=== PATIENT | female | born 1980 | race Caucasian/White ===

== ENCOUNTER 2016-06-17 16:36 | Inpatient (IN) | payer OTHER ==
[2016-06-17 19:49] VITALS: BMI 26.6
--- NOTE | 2016-06-17 20:14 | HP ---
COWS - Scale Resting Pulse: 0= [place] 80 or Below Sweatin=Flushed/Facial Moisture Restless Observation: 3= Extraneous Movement Pupil Size: 2= Moderately Dilated Bone or Joint Aches: 4=Acute Joint/Muscle Pain Runny Nose/ Eye Tearin= Nasal Congestion GI Upset > 30mins: 1= Stomach Cramp Tremor Observation: 2= Slight Tremor Visible Yawning Observation: 1= 1-2x During Session Anxiety or Irritability: 2=Irritable/Anxious Goose Flesh Skin: 0=Smooth Skin COWS Score: 18 CIWA Score - CIWA Score Nausea/Vomitin-No Nausea/No Vomiting Muscle Tremors: 4-Moderate,w/Arms Extend Anxiety: 4-Mod. Anxious/Guarded Agitation: 4-Moderately Restless Paroxysmal Sweats: 3 Orientation: 0-Oriented Tacttile Disturbances: 0-None Auditory Disturbances: 0-None Visual Disturbances: 2-Mild Sensitivity Headache: 3-Moderate CIWA-Ar Total Score: 20 Admission ROS BHS - HPI Chief Complaint: WITHDRAWAL SX'S SEEKING DETOX Allergies/Adverse Reactions: Allergies Allergy/AdvReac Type Severity Reaction Status Date / Time phenobarbital Allergy Severe Rash Verified 06/17/16 20:08 History of Present Illness: 36 Y.O. FEMALE WITH H/O OPIOID AND ALCOHOL DEPENDENCE ADMITTED FOR DETOX TXMENT. CLIENT REPORTS LAST DETOX TXMENT 1 MONTH AGO AT [facility]. UTOX POSITIVE FOR BENZO'S DENIES USE STATES "IT'S CUT WITH THE HEROIN". DENIES ANY SIGNIFICANT PERIOD OF CLEAN TIME. Exam Limitations: No Limitations - Ebola screening Have you traveled outside of the country in the last 21 days: No (N) Have you had contact with anyone from an Ebola affected area: No Have you been sick,other than usual withdrawal symptoms: No Do you have a fever: No - Review of Systems Constitutional: Chills, Loss of Appetite, Malaise, Night Sweats, Changes in sleep EENT: reports: Nose Congestion Respiratory: reports: No Symptoms reported Cardiac: reports: No Symptoms Reported GI: reports: Poor Appetite, Abdominal cramping : reports: No Symptoms Reported Musculoskeletal: reports: Back Pain Integumentary: reports: No Symptoms Reported Neuro: reports: Headache Endocrine: reports: No Symptoms Reported Hematology: reports: Blood Clots (H/O LLE DVT) Psychiatric: reports: Anxious, Depressed Other Systems: Reviewed and Negative Patient History - Patient Medical History Hx Anemia: Yes (USED TO TAKE PROCRIT BUT NOT RECENTLY.) Hx Asthma: No Hx Chronic Obstructive Pulmonary Disease (COPD): No Hx Cancer: No Hx Cardiac Disorders: Yes (CVA) Hx Congestive Heart Failure: No Hx Hypertension: No Hx Hypercholesterolemia: No Hx Pacemaker: No HX Cerebrovascular Accident: Yes (HX AVM AT 20) Hx Seizures: No Hx Dementia: No Hx Diabetes: No Hx Gastrointestinal Disorders: No Hx Liver Disease: No Hx Genitourinary Disorders: No Hx Sexually Transmitted Disorders: No Hx Renal Disease (ESRD): No Hx Thyroid Disease: No Hx Human Immunodeficiency Virus (HIV): No (NEGATIVE HX) Hx Hepatitis C: No Hx Depression: Yes (NO MED MGMT) Hx Suicide Attempt: No Hx Bipolar Disorder: No Hx Schizophrenia: No - Patient Surgical History Past Surgical History: Yes Hx Neurologic Surgery: Yes (BRAIN Sx for AVM at age 20 yrs old.) Hx Cataract Extraction: No Hx Cardiac Surgery: No Hx Lung Surgery: No Hx Breast Surgery: No Hx Breast Biopsy: No Hx Abdominal Surgery: No Hx Appendectomy: No Hx Cholecystectomy: No Hx Genitourinary Surgery: No Hx Section: No Hx Orthopedic Surgery: No Hx Hysterectomy: No Anesthesia Reaction: No - PPD History Previous Implant?: Yes Documented Results: Negative w/proof Implanted On Prior [facility] Admission?: Yes Date: 12/19/15 Results: 0MM PPD to be Administered?: No - Reproductive History Patient is a Female of Child Bearing Age (11 -55 yrs old): Yes Last Menstrual Period: 06/10/16 LMP comment: REGULAR CYCLES Patient : No ([facility] [place]) - Smoking Cessation Smoking history: Current every day smoker Have you smoked in the past 12 months: Yes Aproximately how many cigarettes per day: 10 Cigars Per Day: 0 Hx Chewing Tobacco Use: No Initiated information on smoking cessation: Yes 'Breaking Loose' booklet given: 06/17/16 - Substance & Tx. History Hx Alcohol Use: Yes Hx Substance Use: Yes Substance Use Type: Alcohol, Heroin Hx Substance Use Treatment: Yes ([facility]) - Substances Abused HEROIN Route: Injection Frequency: Daily Amount used: 15 BAGS Age of first use: 17 Date of Last Use: 06/17/16 (2 BAGS) WHISKEY Route: Oral Frequency: Daily Amount used: 3-4 PINTS Age of first use: 29 Date of Last Use: 06/17/16 (0.5 PINT) Family Disease History - Family Disease History Family Disease History: Heart Disease: Mother Admission Physical Exam [facility] - Vital Signs Vital Signs: Vital Signs - 24 hr 06/17/16 19:46 Temperature 98.2 F Pulse Rate 80 Respiratory 20 Rate Blood Pressure 130/87 - Physical General Appearance: Yes: Appropriately Dressed, Mild Distress, Tremorous, Anxious HEENTM: Yes: EOMI, Normocephalic, Normal Voice, TERESO, Pharynx Normal, Nasal Congestion, Other (MISSING TEETH) Respiratory: Yes: Chest Non-Tender, Lungs Clear, Normal Breath Sounds, No Respiratory Distress, No Accessory Muscle Use Neck: Yes: No masses,lesions,Nodules, Supple, Trachea in good position Breast: Yes: Breast Exam Deferred Cardiology: Yes: Regular Rhythm, Regular Rate, S1, S2 Abdominal: Yes: Normal Bowel Sounds, Non Tender, Soft Genitourinary: Yes: Within Normal Limits Back: Yes: Normal Inspection Musculoskeletal: Yes: full range of Motion, Gait Steady Extremities: Yes: Normal Range of Motion, Non-Tender, Tremors 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: 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 NML intact, Fully Oriented, Alert, Motor Strength 5/5 Integumentary: Yes: Normal Color, Warm, Moist, Track Goldberg (BUE) Lymphatic: Yes: Within Normal Limits - Diagnostic (1) Alcohol dependence with uncomplicated withdrawal Current Visit: Yes Status: Chronic (2) Hx of deep venous thrombosis Current Visit: No Status: Resolved (3) Nicotine dependence Current Visit: No Status: Chronic Qualifiers: Nicotine product type: cigarettes Substance use status: uncomplicated Qualified Code(s): F17.210 - Nicotine dependence, cigarettes, uncomplicated (4) Opioid dependence with withdrawal Current Visit: Yes Status: Chronic (5) History of scoliosis Current Visit: Yes Status: Chronic Cleared for Admission [facility] - Detox or Rehab [facility] Level of Care: Medically Managed Detox Regimen/Protocol: Methadone/Librium [facility] Breath Alcohol Content Breath Alcohol Content: 0.016 Urine Pregancy Test - Result Urine Test Results: Negative- NO Line Present Urine Drug Screen - Results Drug Screen Negative: No Urine Drug Screen Results: SHAILESH-Cocaine, BZO-Benzodiazepines
[2016-06-17] MEDS ORDERED: IBUPROFEN 400 MG TABLET (FP) PO PRN (20:24)
[2016-06-17] MEDS ORDERED: MAGNESIUM HYDROX 2400MG/30ML ORAL SUSPENSION 30 ML CUP PO PRN (20:24)
[2016-06-17] MEDS ORDERED: P-EPHED 60MG/TRIPROLIDI 2.5MG TABLET PO PRN (20:24)
[2016-06-17] MEDS ORDERED: MAGNESIUM CITRATE 300 ML BOTTLE PO PRN (20:24)
[2016-06-17] MEDS ORDERED: MAG HYDROX/AL HYDROX/SIMETH 30 ML UNIT-DOSE CUP PO PRN (20:24)
[2016-06-17] MEDS ORDERED: LOPERAMIDE HCL 2 MG CAPSULE PO PRN (20:24)
[2016-06-17] MEDS ORDERED: NICOTINE POLACRILEX 2 MG GUM BC PRN (20:24)
[2016-06-17] MEDS ORDERED: METHADONE HCL 10 MG TABLET (FOR DETOX USE ONLY) PO ONE ×2 (20:24→23:00)
[2016-06-17] MEDS ORDERED: guaiFENesin/D-METHORPHAN HB 10 ML UNIT-DOSE CUPS PO PRN (20:24)
[2016-06-17] MEDS ORDERED: MENTHOL/PHENOL 1 EACH UD MM PRN (20:24)
[2016-06-17] MEDS ORDERED: diphenhydrAMINE HCL 50 MG CAPSULE PO PRN (20:24)
[2016-06-17] MEDS ORDERED: ACETAMINOPHEN 325 MG TABLET (FP) PO PRN (20:24)
[2016-06-17] MEDS: THIAMINE HCL 100 MG TABLET (FP) PO SCH (22:04)
[2016-06-17] MEDS: CYCLOBENZAPRINE HCL 10 MG TABLET (FP) PO PRN (22:05)
[2016-06-17] MEDS: chlordiazePOXIDE HCL 25 MG CAPSULE PO SCH (22:05)
[2016-06-17 23:02] LABS: URINE APPEARANCE CLOUDY; URINE BILIRUBIN NEGATIVE (NEGATIVE); URINE BLOOD NEGATIVE (NEGATIVE); URINE COLOR YELLOW; URINE GLUCOSE (UA) NEGATIVE (NEGATIVE); URINE KETONE NEGATIVE (NEGATIVE); URINE NITRITE NEGATIVE (NEGATIVE); URINE PROTEIN NEGATIVE (NEGATIVE); URINE UROBILINOGEN NEGATIVE E.U./dl (0.2-1.0)
[2016-06-17 23:05] LABS: URINE LEUK ESTERASE TRACE (NEGATIVE)
[2016-06-17 23:09] LABS: URINE MUCUS MANY; URINE RBC 1 /hpf (0-3); URINE WBC 3 /hpf (3-5)
[2016-06-17] MEDS: NICOTINE 14 MG/24 HOURS TOPICAL PATCH TD SCH (23:22)
[2016-06-18] MEDS: chlordiazePOXIDE HCL 25 MG CAPSULE PO SCH ×4 (05:26→22:14)
[2016-06-18] MEDS: CYCLOBENZAPRINE HCL 10 MG TABLET (FP) PO PRN (08:45)
[2016-06-18] MEDS: hydrOXYzine PAMOATE 50 MG CAPSULE (FP) PO PRN ×2 (08:45→20:45)
[2016-06-18] MEDS: chlordiazePOXIDE HCL 25 MG CAPSULE PO PRN ×2 (08:47→15:31)
--- NOTE | 2016-06-18 09:49 | PN ---
S CIWA - CIWA Score Nausea/Vomitin Muscle Tremors: 3 Anxiety: 3 Agitation: 2 Paroxysmal Sweats: 1-Minimal Palms Moist Orientation: 0-Oriented Tacttile Disturbances: 1-Very Mild Itch/Numbness Auditory Disturbances: 1-Very Mild Visual Disturbances: 1-Very Mild Sensitivity Headache: 2-Mild CIWA-Ar Total Score: 17 BHS COWS - Scale Resting Pulse: 0= [place] 80 or Below Sweatin= Chills/Flushing Restless Observation: 3= Extraneous Movement Pupil Size: 1= Pupils >than Normal Bone or Joint Aches: 2= Severe Diffuse Aches Runny Nose/ Eye Tearin= Runny Nose/Eyes GI Upset > 30mins: 2= Nausea/Diarrhea Tremor Observation of Outstretched Hands: 2= Slight Tremor Visible Yawning Observation: 1= 1-2x During Session Anxiety or Irritability: 2=Irritable/Anxious Goose Flesh Skin: 0=Smooth Skin COWS Score: 16 S Progress Note (SOAP) Subjective: ALERT,IRRITABLE,ANXIOUS,TREMOR,INTERRUPTED SLEEP Objective: 06/18/16 09:46 Vital Signs Temperature 98.6 F 06/18/16 09:45 Pulse Rate 75 06/18/16 09:45 Respiratory Rate 20 06/18/16 09:45 Blood Pressure 138/78 06/18/16 09:45 O2 Sat by Pulse Oximetry (%) EKG NSR,75/MIN Laboratory Last Values Urine Color Yellow 06/17/16 22:05 Urine Appearance Cloudy 06/17/16 22:05 Urine pH 7.0 (5.0-8.0) 06/17/16 22:05 Ur Specific [place] 1.025 (1.001-1.035) 06/17/16 22:05 Urine Protein Negative (NEGATIVE) 06/17/16 22:05 Urine Glucose (UA) Negative (NEGATIVE) 06/17/16 22:05 Urine Ketones Negative (NEGATIVE) 06/17/16 22:05 Urine Blood Negative (NEGATIVE) 06/17/16 22:05 Urine Nitrite Negative (NEGATIVE) 06/17/16 22:05 Urine Bilirubin Negative (NEGATIVE) 06/17/16 22:05 Urine Urobilinogen Negative E.U./dl (0.2-1.0) 06/17/16 22:05 Ur Leukocyte Esterase Trace (NEGATIVE) H D 06/17/16 22:05 Urine RBC 1 /hpf (0-3) 06/17/16 22:05 Urine WBC 3 /hpf (3-5) 06/17/16 22:05 Ur Epithelial Cells Few /hpf (FEW) 06/17/16 22:05 Urine Mucus Many 06/17/16 22:05 LABS PENDING Assessment: 06/18/16 09:48 WITHDRAWAL SYMPTOM Plan: CONTINUE DETOX
--- NOTE | 2016-06-18 09:52 | CONSULT ---
[facility] Psychiatric Consult - Data Date of interview: 06/18/16 Admission source: [facility] Identifying data: This is 36 years old female with no psychiatric hospitalization history intoxicated with: Alcohol, Opioids and Nicotine Substance Abuse History: - Smoking Cessation. Smoking history: Current every day smoker. Have you smoked in the past 12 months: Yes. Aproximately how many cigarettes per day: 10. Cigars Per Day: 0. Hx Chewing Tobacco Use: No. Initiated information on smoking cessation: Yes. 'Breaking Loose' booklet given : 06/17/16. - Substance & Tx. History. Hx Alcohol Use: Yes. Hx Substance Use : Yes. Substance Use Type: Alcohol, Heroin. Hx Substance Use Treatment: Yes ( [facility]). - Substances Abused. HEROIN. Route: Injection. Frequency: Daily. Amount used: 15 BAGS. Age of first use: 17. Date of Last Use: 06/17/16 (2 BAGS ). WHISKEY. Route: Oral. Frequency: Daily. Amount used: 3-4 PINTS. Age of first use: 29. Date of Last Use: 06/17/16 (0.5 PINT) Medical History: Low extremities edima, Scoliosis history, DVT, History of Stroke Psychiatric History: Patient reports history of Depression , reports taking prior to admission: Seroquel 100mg po qhs. Flexeril 10mg po tisd. Patient denies history of psychiatric admissions Physical/Sexual Abuse/Trauma History: Denies Additional Comment: Seroquel 100mg po qhs. Flexeril 10mg po tisd Mental Status Exam - Mental Status Exam Alert and Oriented to: Person Cognitive Function: Fair Patient Appearance: Unkempt Mood: Sad Affect: Flat Patient Behavior: Sedated Speech Pattern: Delayed Voice Loudness: Mildly Soft/Quiet Thought Process: Circumstantial Thought Disorder: Being Controlled Hallucinations: Denies Suicidal Ideation: Denies Homicidal Ideation: Denies Insight/Judgement: Fair Sleep: Difficulty falling asleep Appetite: Fair Muscle strength/Tone: Mild Hypotonicity Gait/Station: Shuffling Additional Comments: Seroquel 100mg po qhs. Flexeril 10mg po tisd Psychiatric Findings - Problem List ([place] 1, 2,3) (1) Alcohol dependence with uncomplicated withdrawal Current Visit: Yes Status: Chronic (2) Opioid dependence with withdrawal Current Visit: Yes Status: Chronic (3) Nicotine dependence Current Visit: No Status: Chronic Qualifiers: Nicotine product type: cigarettes Substance use status: uncomplicated Qualified Code(s): F17.210 - Nicotine dependence, cigarettes, uncomplicated (4) Sedative, hypnotic or anxiolytic dependence with withdrawal, uncomplicated Current Visit: No Status: Chronic (5) Uncomplicated opioid dependence Current Visit: No Status: Chronic - Initial Treatment Plan Initial Treatment Plan: Seroquel 100mg po qhs. Flexeril 10mg po tisd
[2016-06-18] MEDS ORDERED: METHADONE HCL 10 MG TABLET (FOR DETOX USE ONLY) PO SCH (10:00)
[2016-06-18] MEDS: PRENATAL VITAMINS W/ FOLIC ACID TABLET (FP) PO SCH (10:15)
[2016-06-18] MEDS: NICOTINE 14 MG/24 HOURS TOPICAL PATCH TD SCH (10:16)
[2016-06-18 10:24] LABS: MCHC 33.7 g/dl (32.0-36.0); MEAN CELL VOLUME 83.2 fl (80-96); MEAN PLT VOLUME 11.9 fl (7.5-11.1); PLATELET COUNT 127 K/MM3 (134-434); RDW 15.4 % (11.6-15.6); WHITE BLOOD COUNT 6.6 K/mm3 (4.0-10.0)
[2016-06-18 10:28] LABS: ALBUMIN 3.2 g/dl (3.4-5.0); ALK PHOS 64 U/L (45-117); ANION GAP 6 (8-16); BILIRUBIN,TOTAL 0.2 mg/dL (0.2-1.0); CALCIUM 9.2 mg/dL (8.5-10.1); CO2 31 mmol/L (21-32); CREATININE 0.6 mg/dL (0.55-1.02); GLUCOSE,RANDOM 87 mg/dL (74-106); SGOT/AST 16 U/L (15-37); SGPT/ALT 20 U/L (12-78); TOT PROT 6.5 g/dl (6.4-8.2)
[2016-06-18 11:54] LABS: HIV 1 & 2 AB NEGATIVE; HIV 1 AGp24 NEGATIVE
--- NOTE | 2016-06-18 13:35 | EKG ---
Test Reason : Blood Pressure : / mmHG Vent. Rate : 076 BPM Atrial Rate : 076 BPM P-R Int : 154 ms QRS Dur : 076 ms QT Int : 358 ms P-R-T Axes : 073 057 051 degrees QTc Int : 402 ms NORMAL SINUS RHYTHM POSSIBLE LEFT ATRIAL ENLARGEMENT BORDERLINE ECG NO PREVIOUS ECGS AVAILABLE Confirmed by KRISSY CARREON MD ([id number]) on 06/18/2016 1:35:41 PM Referred By: Confirmed By:KRISSY CARREON MD
[2016-06-18] MEDS ORDERED: CYCLOBENZAPRINE HCL 10 MG TABLET (FP) PO SCH (14:00)
[2016-06-18] MEDS ORDERED: QUEtiapine FUMARATE 100 MG TABLET (FP) PO SCH (22:00)
[2016-06-18] MEDS: THIAMINE HCL 100 MG TABLET (FP) PO SCH (22:14)
[2016-06-19] MEDS: chlordiazePOXIDE HCL 25 MG CAPSULE PO SCH ×3 (04:51→17:18)
[2016-06-19] MEDS: METHADONE HCL 5 MG TABLET (FOR DETOX USE ONLY) PO SCH (10:28)
[2016-06-19] MEDS: hydrOXYzine PAMOATE 50 MG CAPSULE (FP) PO PRN (10:28)
[2016-06-19] MEDS: QUEtiapine FUMARATE 100 MG TABLET (FP) PO SCH ×2 (10:28→22:13)
[2016-06-19] MEDS: PRENATAL VITAMINS W/ FOLIC ACID TABLET (FP) PO SCH (10:28)
[2016-06-19] MEDS: CYCLOBENZAPRINE HCL 10 MG TABLET (FP) PO PRN ×2 (10:28→22:17)
[2016-06-19] MEDS: NICOTINE 14 MG/24 HOURS TOPICAL PATCH TD SCH (10:29)
--- NOTE | 2016-06-19 11:37 | PN ---
Psychiatric Progress Note Vital Signs: Vital Signs Period Temp Pulse Resp BP Sys/Ch Pulse Ox Last 24 Hr 97.7 F-99.0 F 70-86 16-20 104-135/60-80 Date of Session: 06/19/16 Chief Complaint:: Anxiety HPI: Patient approached MD in the [place] asking to double Seroquel dosage due to anxiety and agitation. Current Medications: Active Medications Generic Name Dose Route Start Last Admin Trade Name Freq PRN Reason Stop Dose Admin Acetaminophen 650 mg 06/17/16 20:24 Tylenol - PO Q4H PRN FEVER OR PAIN Al Hydroxide/Mg Hydroxide 30 ml 06/17/16 20:24 Mylanta Oral Suspension - PO Q6H PRN DYSPEPSIA Chlordiazepoxide HCl 10 mg 06/20/16 23:00 Librium - PO 06/21/16 17:01 [id number] SUSHILA Chlordiazepoxide HCl 25 mg 06/17/16 20:24 06/18/16 15:31 Librium - PO 06/20/16 20:24 25 mg Q4H PRN Administration WITHDRAWAL(CONT SUBST) Chlordiazepoxide HCl 25 mg 06/18/16 23:00 06/19/16 10:28 Librium - PO 06/19/16 17:01 25 mg [id number] SUSHILA Administration Chlordiazepoxide HCl 15 mg 06/19/16 23:00 Librium - PO 06/20/16 17:01 [id number] SUSHILA Cyclobenzaprine HCl 10 mg 06/17/16 20:34 06/19/16 10:28 Flexeril - PO 10 mg TID PRN Administration MUSCLE SPASMS Diphenhydramine HCl 50 mg 06/17/16 20:24 Benadryl - PO HSMR1 PRN INSOMNIA Eucalyptus/Menthol/Phenol/Sorbitol 1 each 06/17/16 20:24 Cepastat Lozenge - MM Q4H PRN SORE THROAT Guaifenesin 10 ml 06/17/16 20:24 Robitussin Dm - PO Q6H PRN COUGH Hydroxyzine Pamoate 50 mg 06/17/16 20:24 06/19/16 10:28 Vistaril - PO 50 mg Q4H PRN Administration AGITATION Ibuprofen 400 mg 06/17/16 20:24 Motrin - PO Q6H PRN SEVERE PAIN Loperamide HCl 4 mg 06/17/16 20:24 Imodium - PO Q6H PRN DIARRHEA Magnesium Citrate 300 ml 06/17/16 20:24 Citroma - PO Q48H PRN CONSTIPATION Magnesium Hydroxide 30 ml 06/17/16 20:24 Milk Of Magnesia - PO DAILY PRN CONSTIPATION Methadone HCl 10 mg 06/21/16 10:00 Dolophine - PO 06/21/16 10:01 DAILY SUSHILA Methadone HCl 15 mg 06/19/16 10:00 06/19/16 10:28 Dolophine - PO 06/20/16 10:01 15 mg DAILY SUSHILA Administration Methadone HCl 5 mg 06/22/16 06:00 Dolophine - PO 06/22/16 06:01 DAILY@0600 [facility] Nicotine 14 mg 06/17/16 20:30 06/19/16 10:29 Nicoderm Patch - TD 14 mg DAILY SUSHILA Administration Nicotine Polacrilex 2 mg 06/17/16 20:24 Nicorette Gum - BC Q2H PRN NICOTINE REPLACEMENT RX Multivit/Folic Acid/Iron 1 tab 06/18/16 10:00 06/19/16 10:28 Vitamins (Sjr) - PO 1 tab DAILY SUSHILA Administration Pseudoephedrine/Triprolidine 1 combo 06/17/16 20:24 Actifed - PO TID PRN NASAL CONGESTION Quetiapine Fumarate 100 mg 06/19/16 10:00 06/19/16 10:28 Seroquel - PO 100 mg BID SUSHILA Administration Thiamine HCl 100 mg 06/17/16 22:00 06/18/16 22:14 Vitamin B1 - PO 100 mg HS SUSHILA Administration Medication(s) Change(s): Seroquel 100mg po bid Mental Status Exam - Mental Status Exam Alert and Oriented to: Person Cognitive Function: Fair Patient Appearance: Unkempt Mood: Anxious Affect: Mood Congruent Patient Behavior: Cooperative Speech Pattern: Appropriate Voice Loudness: Normal Thought Process: Goal Oriented Thought Disorder: Being Controlled Hallucinations: Denies Suicidal Ideation: Denies Homicidal Ideation: Denies Insight/Judgement: Fair Sleep: Difficulty falling asleep Appetite: Fair Muscle strength/Tone: Normal Gait/Station: Normal Additional Comments: Seroquel 100mg po bid Psychiatric Treatment Plan - Problem List (1) Alcohol dependence with uncomplicated withdrawal Current Visit: Yes (2) Opioid dependence with withdrawal Current Visit: Yes (3) Nicotine dependence Current Visit: No Qualifiers: Nicotine product type: cigarettes Substance use status: uncomplicated Qualified Code(s): F17.210 - Nicotine dependence, cigarettes, uncomplicated (4) Sedative, hypnotic or anxiolytic dependence with withdrawal, uncomplicated Current Visit: No (5) Uncomplicated opioid dependence Current Visit: No Initial treatment plan: Seroquel 100mg po bid
[2016-06-19] MEDS ORDERED: IBUPROFEN 600 MG TABLET (FP) PO PRN (12:01)
--- NOTE | 2016-06-19 12:01 | PN ---
[facility] CIWA - CIWA Score Nausea/Vomitin-No Nausea/No Vomiting Muscle Tremors: 4-Moderate,w/Arms Extend Anxiety: 4-Mod. Anxious/Guarded Agitation: 4-Moderately Restless Paroxysmal Sweats: 3 Orientation: 0-Oriented Tacttile Disturbances: 0-None Auditory Disturbances: 0-None Visual Disturbances: 0-None Headache: 1-Very Mild CIWA-Ar Total Score: 16 BHS COWS - Scale Resting Pulse: 1= [place] 81-100 Sweatin=Flushed/Facial Moisture Restless Observation: 1= Difficult to Sit Still Pupil Size: 0= Normal to Room Light Bone or Joint Aches: 2= Severe Diffuse Aches Runny Nose/ Eye Tearin= Runny Nose/Eyes GI Upset > 30mins: 1= Stomach Cramp Tremor Observation of Outstretched Hands: 2= Slight Tremor Visible Yawning Observation: 2= >3x During Session Anxiety or Irritability: 2=Irritable/Anxious Goose Flesh Skin: 0=Smooth Skin COWS Score: 15 S Progress Note (SOAP) Subjective: nausea sweats shakes interrupted sleep agitation anxiety body aches Objective: 06/19/16 12:02 Vital Signs Temperature 97.9 F 06/19/16 09:55 Pulse Rate 86 06/19/16 09:55 Respiratory Rate 18 06/19/16 09:55 Blood Pressure 104/68 06/19/16 09:55 O2 Sat by Pulse Oximetry (%) Laboratory Tests 06/17/16 06/18/16 06/18/16 22:05 07:00 07:00 WBC 6.6 RBC 4.49 Hgb 12.6 Hct 37.3 MCV 83.2 MCHC 33.7 RDW 15.4 Plt Count 127 L D MPV 11.9 H Sodium 141 Potassium 4.2 Chloride 104 Carbon Dioxide 31 Anion Gap 6 L BUN 13 D Creatinine 0.6 Creat Clearance w eGFR > 60 Random Glucose 87 D Calcium 9.2 Total Bilirubin 0.2 D AST 16 ALT 20 Alkaline Phosphatase 64 Total Protein 6.5 Albumin 3.2 L Urine Color Yellow Urine Appearance Cloudy Urine pH 7.0 Ur Specific [place] 1.025 Urine Protein Negative Urine Glucose (UA) Negative Urine Ketones Negative Urine Blood Negative Urine Nitrite Negative Urine Bilirubin Negative Urine Urobilinogen Negative Ur Leukocyte Esterase Trace H D Urine RBC 1 Urine WBC 3 Ur Epithelial Cells Few Urine Mucus Many RPR Titer HIV 1&2 Antibody Screen HIV P24 Antigen 06/18/16 06/18/16 07:00 07:00 WBC RBC Hgb Hct MCV MCHC RDW Plt Count MPV Sodium Potassium Chloride Carbon Dioxide Anion Gap BUN Creatinine Creat Clearance w eGFR Random Glucose Calcium Total Bilirubin AST ALT Alkaline Phosphatase Total Protein Albumin Urine Color Urine Appearance Urine pH Ur Specific [place] Urine Protein Urine Glucose (UA) Urine Ketones Urine Blood Urine Nitrite Urine Bilirubin Urine Urobilinogen Ur Leukocyte Esterase Urine RBC Urine WBC Ur Epithelial Cells Urine Mucus RPR Titer Nonreactive HIV 1&2 Antibody Screen Negative HIV P24 Antigen Negative awake/alert ambulating no acute distress Assessment: 06/19/16 12:03 withdrawal sx Plan: continue detox increase fluids ensure plus 120ml po nid tigan po prn
[2016-06-19] MEDS ORDERED: TRIMETHOBENZAMIDE HCL 300 MG CAPSULE PO PRN (12:03)
[2016-06-19] MEDS: chlordiazePOXIDE HCL 25 MG CAPSULE PO PRN (14:06)
[2016-06-19] MEDS: chlordiazePOXIDE 5 MG CAPSULE PO SCH (22:13)
[2016-06-19] MEDS: THIAMINE HCL 100 MG TABLET (FP) PO SCH (22:14)
[2016-06-20] MEDS: chlordiazePOXIDE 5 MG CAPSULE PO SCH ×3 (06:07→17:38)
[2016-06-20] MEDS: CYCLOBENZAPRINE HCL 10 MG TABLET (FP) PO PRN ×2 (10:08→22:15)
[2016-06-20] MEDS: PRENATAL VITAMINS W/ FOLIC ACID TABLET (FP) PO SCH (10:08)
[2016-06-20] MEDS: QUEtiapine FUMARATE 100 MG TABLET (FP) PO SCH ×2 (10:08→22:11)
[2016-06-20] MEDS: METHADONE HCL 5 MG TABLET (FOR DETOX USE ONLY) PO SCH (10:09)
[2016-06-20] MEDS: NICOTINE 14 MG/24 HOURS TOPICAL PATCH TD SCH (10:09)
--- NOTE | 2016-06-20 10:57 | PN ---
[facility] CIWA - CIWA Score Nausea/Vomitin Muscle Tremors: 3 Anxiety: 3 Agitation: 2 Paroxysmal Sweats: 1-Minimal Palms Moist Orientation: 0-Oriented Tacttile Disturbances: 1-Very Mild Itch/Numbness Auditory Disturbances: 1-Very Mild Visual Disturbances: 1-Very Mild Sensitivity Headache: 2-Mild CIWA-Ar Total Score: 17 BHS COWS - Scale Resting Pulse: 1= [place] 81-100 Sweatin= Chills/Flushing Restless Observation: 3= Extraneous Movement Pupil Size: 1= Pupils >than Normal Bone or Joint Aches: 2= Severe Diffuse Aches Runny Nose/ Eye Tearin= Runny Nose/Eyes GI Upset > 30mins: 2= Nausea/Diarrhea Tremor Observation of Outstretched Hands: 2= Slight Tremor Visible Yawning Observation: 1= 1-2x During Session Anxiety or Irritability: 2=Irritable/Anxious Goose Flesh Skin: 0=Smooth Skin COWS Score: 17 [facility] Progress Note (SOAP) Subjective: ALERT,IRRITABLE,ANXIOUS,INTERRUPTED SLEEP,TREMOR,PAIN IN THE BODY AND BACK Objective: 06/20/16 10:54 Vital Signs Temperature 97.5 F L 06/20/16 10:20 Pulse Rate 93 H 06/20/16 10:20 Respiratory Rate 18 06/20/16 10:20 Blood Pressure 120/74 06/20/16 10:20 O2 Sat by Pulse Oximetry (%) Laboratory Last Values WBC 6.6 K/mm3 (4.0-10.0) 06/18/16 07:00 RBC 4.49 M/mm3 (3.60-5.2) 06/18/16 07:00 Hgb 12.6 GM/dL (10.7-15.3) 06/18/16 07:00 Hct 37.3 % (32.4-45.2) 06/18/16 07:00 MCV 83.2 fl (80-96) 06/18/16 07:00 MCHC 33.7 g/dl (32.0-36.0) 06/18/16 07:00 RDW 15.4 % (11.6-15.6) 06/18/16 07:00 Plt Count 127 K/MM3 (134-434) L D 06/18/16 07:00 MPV 11.9 fl (7.5-11.1) H 06/18/16 07:00 Sodium 141 mmol/L (136-145) 06/18/16 07:00 Potassium 4.2 mmol/L (3.5-5.1) 06/18/16 07:00 Chloride 104 mmol/L (98-107) 06/18/16 07:00 Carbon Dioxide 31 mmol/L (21-32) 06/18/16 07:00 Anion Gap 6 (8-16) L 06/18/16 07:00 BUN 13 mg/dL (7-18) D 06/18/16 07:00 Creatinine 0.6 mg/dL (0.55-1.02) 06/18/16 07:00 Creat Clearance w eGFR > 60 (>60) 06/18/16 07:00 Random Glucose 87 mg/dL (74-106) D 06/18/16 07:00 Calcium 9.2 mg/dL (8.5-10.1) 06/18/16 07:00 Total Bilirubin 0.2 mg/dL (0.2-1.0) D 06/18/16 07:00 AST 16 U/L (15-37) 06/18/16 07:00 ALT 20 U/L (12-78) 06/18/16 07:00 Alkaline Phosphatase 64 U/L (45-117) 06/18/16 07:00 Total Protein 6.5 g/dl (6.4-8.2) 06/18/16 07:00 Albumin 3.2 g/dl (3.4-5.0) L 06/18/16 07:00 Urine Color Yellow 06/17/16 22:05 Urine Appearance Cloudy 06/17/16 22:05 Urine pH 7.0 (5.0-8.0) 06/17/16 22:05 Ur Specific [place] 1.025 (1.001-1.035) 06/17/16 22:05 Urine Protein Negative (NEGATIVE) 06/17/16 22:05 Urine Glucose (UA) Negative (NEGATIVE) 06/17/16 22:05 Urine Ketones Negative (NEGATIVE) 06/17/16 22:05 Urine Blood Negative (NEGATIVE) 06/17/16 22:05 Urine Nitrite Negative (NEGATIVE) 06/17/16 22:05 Urine Bilirubin Negative (NEGATIVE) 06/17/16 22:05 Urine Urobilinogen Negative E.U./dl (0.2-1.0) 06/17/16 22:05 Ur Leukocyte Esterase Trace (NEGATIVE) H D 06/17/16 22:05 Urine RBC 1 /hpf (0-3) 06/17/16 22:05 Urine WBC 3 /hpf (3-5) 06/17/16 22:05 Ur Epithelial Cells Few /hpf (FEW) 06/17/16 22:05 Urine Mucus Many 06/17/16 22:05 RPR Titer Nonreactive (NONREACTIVE) 06/18/16 07:00 HIV 1&2 Antibody Screen Negative 06/18/16 07:00 HIV P24 Antigen Negative 06/18/16 07:00 Assessment: 06/20/16 10:55 WITHDRAWAL SYMPTOM Plan: CONTINUE DETOX,TINACTIN CREAM FOR TINEA PEDIS
[2016-06-20] MEDS: TOLNAFTATE 1% CREAM 15 GM TUBE TP SCH ×2 (12:39→22:11)
[2016-06-20] MEDS: hydrOXYzine PAMOATE 50 MG CAPSULE (FP) PO PRN (18:31)
[2016-06-20] MEDS: THIAMINE HCL 100 MG TABLET (FP) PO SCH (22:11)
[2016-06-20] MEDS: chlordiazePOXIDE HCL 10 MG CAPSULE PO SCH (22:11)
[2016-06-21] MEDS: chlordiazePOXIDE HCL 10 MG CAPSULE PO SCH ×3 (06:07→17:42)
[2016-06-21] MEDS: hydrOXYzine PAMOATE 50 MG CAPSULE (FP) PO PRN ×2 (08:38→18:14)
--- NOTE | 2016-06-21 09:36 | PN ---
S Progress Note (SOAP) Subjective: ALERT,INTERRUPTED SLEEP Objective: 06/21/16 09:35 Vital Signs Temperature 97.3 F L 06/21/16 09:35 Pulse Rate 88 06/21/16 09:35 Respiratory Rate 18 06/21/16 09:35 Blood Pressure 106/57 06/21/16 09:35 O2 Sat by Pulse Oximetry (%) Assessment: 06/21/16 09:35 WITHDRAWAL SYMPTOM Plan: CONTINUE DETOX,DISCHARGE IN AM
[2016-06-21] MEDS ORDERED: METHADONE HCL 10 MG TABLET (FOR DETOX USE ONLY) PO SCH (10:00)
[2016-06-21] MEDS: PRENATAL VITAMINS W/ FOLIC ACID TABLET (FP) PO SCH (10:10)
[2016-06-21] MEDS: NICOTINE 14 MG/24 HOURS TOPICAL PATCH TD SCH (10:11)
[2016-06-21] MEDS: TOLNAFTATE 1% CREAM 15 GM TUBE TP SCH ×2 (10:11→22:17)
[2016-06-21] MEDS: QUEtiapine FUMARATE 100 MG TABLET (FP) PO SCH ×2 (10:11→22:18)
[2016-06-21] MEDS: THIAMINE HCL 100 MG TABLET (FP) PO SCH (22:18)
[2016-06-21] MEDS: CYCLOBENZAPRINE HCL 10 MG TABLET (FP) PO PRN (22:19)
[2016-06-22] MEDS ORDERED: METHADONE HCL 5 MG TABLET (FOR DETOX USE ONLY) PO SCH (06:00)
[2016-06-22] MEDS: PRENATAL VITAMINS W/ FOLIC ACID TABLET (FP) PO SCH (09:16)
[2016-06-22] MEDS: QUEtiapine FUMARATE 100 MG TABLET (FP) PO SCH (09:16)
[2016-06-22] MEDS: TOLNAFTATE 1% CREAM 15 GM TUBE TP SCH (09:17)
[2016-06-22] MEDS: NICOTINE 14 MG/24 HOURS TOPICAL PATCH TD SCH (09:17)
--- NOTE | 2016-06-22 09:30 | DS ---
[facility] Detox Discharge Summary Admission Date: 06/17/16 Discharge Date: 06/22/16 - History Present History: Alcohol Dependence, Opioid Dependence Pertinent Past History: AVM DVT Scoliosis - Physical Exam Results Vital Signs: Vital Signs Temperature 97.3 F L 06/22/16 06:00 Pulse Rate 75 06/22/16 06:00 Respiratory Rate 18 06/22/16 06:00 Blood Pressure 117/71 06/22/16 06:00 O2 Sat by Pulse Oximetry (%) Pertinent Admission Physical Exam Findings: withdrawal sx. Laboratory Last Values WBC 6.6 K/mm3 (4.0-10.0) 06/18/16 07:00 RBC 4.49 M/mm3 (3.60-5.2) 06/18/16 07:00 Hgb 12.6 GM/dL (10.7-15.3) 06/18/16 07:00 Hct 37.3 % (32.4-45.2) 06/18/16 07:00 MCV 83.2 fl (80-96) 06/18/16 07:00 MCHC 33.7 g/dl (32.0-36.0) 06/18/16 07:00 RDW 15.4 % (11.6-15.6) 06/18/16 07:00 Plt Count 127 K/MM3 (134-434) L D 06/18/16 07:00 MPV 11.9 fl (7.5-11.1) H 06/18/16 07:00 Sodium 141 mmol/L (136-145) 06/18/16 07:00 Potassium 4.2 mmol/L (3.5-5.1) 06/18/16 07:00 Chloride 104 mmol/L (98-107) 06/18/16 07:00 Carbon Dioxide 31 mmol/L (21-32) 06/18/16 07:00 Anion Gap 6 (8-16) L 06/18/16 07:00 BUN 13 mg/dL (7-18) D 06/18/16 07:00 Creatinine 0.6 mg/dL (0.55-1.02) 06/18/16 07:00 Creat Clearance w eGFR > 60 (>60) 06/18/16 07:00 Random Glucose 87 mg/dL (74-106) D 06/18/16 07:00 Calcium 9.2 mg/dL (8.5-10.1) 06/18/16 07:00 Total Bilirubin 0.2 mg/dL (0.2-1.0) D 06/18/16 07:00 AST 16 U/L (15-37) 06/18/16 07:00 ALT 20 U/L (12-78) 06/18/16 07:00 Alkaline Phosphatase 64 U/L (45-117) 06/18/16 07:00 Total Protein 6.5 g/dl (6.4-8.2) 06/18/16 07:00 Albumin 3.2 g/dl (3.4-5.0) L 06/18/16 07:00 Urine Color Yellow 06/17/16 22:05 Urine Appearance Cloudy 06/17/16 22:05 Urine pH 7.0 (5.0-8.0) 06/17/16 22:05 Ur Specific [place] 1.025 (1.001-1.035) 06/17/16 22:05 Urine Protein Negative (NEGATIVE) 06/17/16 22:05 Urine Glucose (UA) Negative (NEGATIVE) 06/17/16 22:05 Urine Ketones Negative (NEGATIVE) 06/17/16 22:05 Urine Blood Negative (NEGATIVE) 06/17/16 22:05 Urine Nitrite Negative (NEGATIVE) 06/17/16 22:05 Urine Bilirubin Negative (NEGATIVE) 06/17/16 22:05 Urine Urobilinogen Negative E.U./dl (0.2-1.0) 06/17/16 22:05 Ur Leukocyte Esterase Trace (NEGATIVE) H D 06/17/16 22:05 Urine RBC 1 /hpf (0-3) 06/17/16 22:05 Urine WBC 3 /hpf (3-5) 06/17/16 22:05 Ur Epithelial Cells Few /hpf (FEW) 06/17/16 22:05 Urine Mucus Many 06/17/16 22:05 RPR Titer Nonreactive (NONREACTIVE) 06/18/16 07:00 HIV 1&2 Antibody Screen Negative 06/18/16 07:00 HIV P24 Antigen Negative 06/18/16 07:00 labs noted - Treatment Hospital Course: Detox Protocol Followed, Detoxed Safely, Responded well, Discharged Condition Good, Rehab Referral Accepted - Medication Discharge Medications: Ambulatory Orders Cyclobenzaprine HCl [Flexeril -] 10 mg PO TID 04/18/16 Quetiapine Fumarate [Seroquel -] 25 mg PO BID #60 tablet 04/21/16 Quetiapine Fumarate [Seroquel] 100 tab PO HS #30 tablet 04/21/16 Cyclobenzaprine HCl [Flexeril -] 10 mg PO TID #90 tablet 06/18/16 Quetiapine Fumarate [Seroquel] 100 mg PO HS #30 tablet 06/18/16 - Diagnosis (1) Alcohol dependence with uncomplicated withdrawal Current Visit: Yes Status: Chronic (2) Opioid dependence with withdrawal Current Visit: Yes Status: Chronic (3) Sedative, hypnotic or anxiolytic dependence with withdrawal, uncomplicated Current Visit: Yes Status: Chronic - AMA Did Patient Leave Against Medical Advice: No
[2016-06-22 10:32] VITALS: BP 116/67; PULSE 88; TEMP 98.2
== END 2016-06-22 09:40 | disposition home or self-care (01) | DRG 773 ==
LOC: YASAS 16:36 → Y6N 20:29
PROVIDERS: ADMIT Internal Medicine Addiction Medicine; ATTEND Internal Medicine Addiction Medicine
PROC: HZ2ZZZZ Detoxification Services for Substance Abuse Treatment (ICD-10-PCS; principal; 2016-06-22)
DX: F11.23 Opioid dependence with withdrawal (principal); F13.230 Sedative, hypnotic or anxiolytic dependence with withdrawal, uncomplicated; F10.230 Alcohol dependence with withdrawal, uncomplicated; F17.210 Nicotine dependence, cigarettes, uncomplicated; M41.9 Scoliosis, unspecified
CPT/HCPCS: 36415; 80053; 81003; 81015; 85027; 86593; 87389; 93005; 93010

== ENCOUNTER 2016-08-01 12:57 | Inpatient (IN) | payer OTHER ==
[2016-08-01 15:36] VITALS: BMI 26.4
--- NOTE | 2016-08-01 19:10 | HP ---
COWS - Scale Resting Pulse: 2= [place] 101-120 Sweatin= Chills/Flushing Restless Observation: 3= Extraneous Movement Pupil Size: 0= Normal to Room Light Bone or Joint Aches: 1= Mild Discomfort Runny Nose/ Eye Tearin= Runny Nose/Eyes GI Upset > 30mins: 2= Nausea/Diarrhea Tremor Observation: 1= Tremor [place], Not Seen Yawning Observation: 1= 1-2x During Session Anxiety or Irritability: 2=Irritable/Anxious Goose Flesh Skin: 0=Smooth Skin COWS Score: 15 CIWA Score - CIWA Score Nausea/Vomitin-Mild Nausea/No Vomiting Muscle Tremors: 4-Moderate,w/Arms Extend Anxiety: 4-Mod. Anxious/Guarded Agitation: 4-Moderately Restless Paroxysmal Sweats: 1-Minimal Palms Moist Orientation: 0-Oriented Tacttile Disturbances: 0-None Auditory Disturbances: 0-None Visual Disturbances: 0-None Headache: 2-Mild CIWA-Ar Total Score: 16 Admission ROS BHS - HPI Chief Complaint: WITHDRAWAL SX Allergies/Adverse Reactions: Allergies Allergy/AdvReac Type Severity Reaction Status Date / Time phenobarbital Allergy Severe Rash Verified 08/01/16 18:30 History of Present Illness: 36 YEARS OLD FEMALE WITH LONG HISTORY OF ALCOHOL XANAX NICOTINE OPIATE DEPENDENCE DENIES MEDICAL ISSUE HAS DEPRESSION IS ADMITTED TO DETOX Exam Limitations: No Limitations - Ebola screening Have you traveled outside of the country in the last 21 days: No Have you had contact with anyone from an Ebola affected area: No Have you been sick,other than usual withdrawal symptoms: No Do you have a fever: No - Review of Systems Constitutional: Chills, Loss of Appetite, Changes in sleep, Unintentional Wgt. Loss, Unexplained wgt Loss EENT: reports: No Symptoms Reported Respiratory: reports: No Symptoms reported Cardiac: reports: No Symptoms Reported GI: reports: Diarrhea, Nausea, Poor Appetite, Poor Fluid Intake, Abdominal cramping : reports: No Symptoms Reported Musculoskeletal: reports: Back Pain, Joint Pain, Muscle Pain, Neck Pain Integumentary: reports: Change in Color (BOTH FORE ARMS) Neuro: reports: Tremors Endocrine: reports: No Symptoms Reported Hematology: reports: No Symptoms Reported Psychiatric: reports: Judgement Intact, Orientated x3, Depressed Other Systems: Reviewed and Negative Patient History - Patient Medical History Hx Anemia: Yes (NO TREATMENT) Hx Asthma: No Hx Chronic Obstructive Pulmonary Disease (COPD): No Hx Cancer: No Hx Cardiac Disorders: No (CVA) Hx Congestive Heart Failure: No Hx Hypertension: No Hx Hypercholesterolemia: No Hx Pacemaker: No HX Cerebrovascular Accident: Yes (2000) Hx Seizures: No Hx Dementia: No Hx Diabetes: No Hx Gastrointestinal Disorders: No Hx Liver Disease: No Hx Genitourinary Disorders: No Hx Sexually Transmitted Disorders: No Hx Renal Disease (ESRD): No Hx Thyroid Disease: No Hx Human Immunodeficiency Virus (HIV): No (NEGATIVE HX) Hx Hepatitis C: No Hx Depression: Yes (NO MED MGMT) Hx Suicide Attempt: No Hx Bipolar Disorder: No Hx Schizophrenia: No - Patient Surgical History Past Surgical History: Yes Hx Neurologic Surgery: Yes (BRAIN Sx for AVM at age 20 yrs old.) Hx Cataract Extraction: No Hx Cardiac Surgery: No Hx Lung Surgery: No Hx Breast Surgery: No Hx Breast Biopsy: No Hx Abdominal Surgery: No Hx Appendectomy: No Hx Cholecystectomy: No Hx Genitourinary Surgery: No Hx Section: No Hx Orthopedic Surgery: No Hx Hysterectomy: No Anesthesia Reaction: No - PPD History Previous Implant?: Yes Documented Results: Negative w/proof Implanted On Prior R Admission?: Yes Date: 12/19/15 Results: 0MM PPD to be Administered?: No - Reproductive History Patient is a Female of Child Bearing Age (11 -55 yrs old): Yes Last Menstrual Period: 07/11/16 Patient : No - Smoking Cessation Smoking history: Current every day smoker Have you smoked in the past 12 months: Yes Aproximately how many cigarettes per day: 10 Cigars Per Day: 0 Hx Chewing Tobacco Use: No Initiated information on smoking cessation: Yes 'Breaking Loose' booklet given: 08/01/16 - Substance & Tx. History Hx Alcohol Use: Yes Hx Substance Use: Yes Substance Use Type: Alcohol, Opiates, Tranquilizers Hx Substance Use Treatment: Yes - Substances Abused Alcohol Route: Oral Frequency: Daily Amount used: liquor- 3 pints VOLKA+ beer- 1 six pack Age of first use: 29 Date of Last Use: 08/01/16 Alprazolam (Xanax) Route: Oral Frequency: Daily Amount used: 2mg Age of first use: 29 Date of Last Use: 07/31/16 Heroin Route: Injection Frequency: Daily Amount used: 20 bags Age of first use: 17 Date of Last Use: 08/01/16 Family Disease History - Family Disease History Family Disease History: Heart Disease: Mother, Other: Father () Other Family History: ONLY CHILD Admission Physical Exam [facility] - Vital Signs Vital Signs: Vital Signs - 24 hr 08/01/16 15:28 Temperature 97.9 F Pulse Rate 105 H Respiratory 18 Rate Blood Pressure 128/76 - Physical General Appearance: Yes: Appropriately Dressed, Mild Distress, Thin, Tremorous, Irritable, Sweating, Anxious HEENTM: Yes: Hearing grossly Normal, Normal ENT Inspection, Normocephalic, Normal Voice Respiratory: Yes: Chest Non-Tender, Lungs Clear, Normal Breath Sounds, No Respiratory Distress, No Accessory Muscle Use Neck: Yes: Supple, Trachea in good position Breast: Yes: Breasts Symetrical Cardiology: Yes: Regular Rhythm, S1, S2, Tachycardia Abdominal: Yes: Non Tender, Soft, Increased Bowel Sounds Genitourinary: Yes: Within Normal Limits Back: Yes: Normal Inspection Musculoskeletal: Yes: full range of Motion, Gait Steady, Back pain, Muscle Pain (HANDS) Extremities: Yes: Normal Range of Motion, Non-Tender, Tremors 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: Alert, Motor Strength 5/5, Normal Response, Depressed Affect Integumentary: Yes: Warm, Track [place] Lymphatic: Yes: Within Normal Limits - Diagnostic (1) Alcohol dependence with uncomplicated withdrawal Current Visit: Yes Status: Acute (2) Dry skin dermatitis Current Visit: Yes Status: Acute (3) Nicotine dependence Current Visit: Yes Status: Acute Qualifiers: Nicotine product type: cigarettes Substance use status: in withdrawal Qualified Code(s): F17.213 - Nicotine dependence, cigarettes, with withdrawal (4) Opioid dependence with withdrawal Current Visit: Yes Status: Acute (5) Sedative, hypnotic or anxiolytic dependence with withdrawal, uncomplicated Current Visit: Yes Status: Acute (6) Depressive disorder Current Visit: Yes Status: Suspected (7) Weight loss Current Visit: Yes Status: Acute (8) Chronic back pain Current Visit: Yes Status: Chronic Qualifiers: Back pain location: low back pain Back pain laterality: bilateral Sciatica presence: without sciatica Qualified Code(s): M54.5 - Low back pain; G89.29 - Other chronic pain Cleared for Admission [facility] - Detox or Rehab [facility] Level of Care: Medically Managed Detox Regimen/Protocol: Methadone/Librium [facility] Breath Alcohol Content Breath Alcohol Content: 0 Urine Pregancy Test - Result Urine Test Results: Negative- NO Line Present Urine Drug Screen - Results Drug Screen Negative: No Urine Drug Screen Results: OPI-Opiates, BZO-Benzodiazepines, MTD-Methadone
[2016-08-01] MEDS ORDERED: MENTHOL/PHENOL 1 EACH UD MM PRN (19:13)
[2016-08-01] MEDS ORDERED: MAGNESIUM CITRATE 300 ML BOTTLE PO PRN (19:13)
[2016-08-01] MEDS ORDERED: P-EPHED 60MG/TRIPROLIDI 2.5MG TABLET PO PRN (19:13)
[2016-08-01] MEDS ORDERED: MAG HYDROX/AL HYDROX/SIMETH 30 ML UNIT-DOSE CUP PO PRN (19:13)
[2016-08-01] MEDS ORDERED: guaiFENesin/D-METHORPHAN HB 10 ML UNIT-DOSE CUPS PO PRN (19:13)
[2016-08-01] MEDS ORDERED: METHADONE HCL 10 MG TABLET (FOR DETOX USE ONLY) PO ONE ×2 (19:13→23:00)
[2016-08-01] MEDS ORDERED: NICOTINE POLACRILEX 2 MG GUM BC PRN (19:13)
[2016-08-01] MEDS ORDERED: MAGNESIUM HYDROX 2400MG/30ML ORAL SUSPENSION 30 ML CUP PO PRN (19:13)
[2016-08-01] MEDS ORDERED: ACETAMINOPHEN 325 MG TABLET (FP) PO PRN (19:13)
[2016-08-01] MEDS ORDERED: LOPERAMIDE HCL 2 MG CAPSULE PO PRN (19:13)
[2016-08-01] MEDS ORDERED: IBUPROFEN 400 MG TABLET (FP) PO PRN (19:13)
[2016-08-01] MEDS ORDERED: COLLOIDAL OATMEAL 1 BAR EACH TP PRN (19:15)
[2016-08-01] MEDS: chlordiazePOXIDE HCL 25 MG CAPSULE PO PRN (20:36)
[2016-08-01] MEDS: chlordiazePOXIDE HCL 25 MG CAPSULE PO SCH (22:26)
[2016-08-01] MEDS: diphenhydrAMINE HCL 50 MG CAPSULE PO PRN (22:27)
[2016-08-01] MEDS: THIAMINE HCL 100 MG TABLET (FP) PO SCH (22:27)
[2016-08-01] MEDS: CYCLOBENZAPRINE HCL 10 MG TABLET (FP) PO PRN (22:31)
[2016-08-01] MEDS: MINERAL OIL/PETROLAT/WATER TOPICAL CREAM 113 GM JAR TP SCH (22:31)
[2016-08-01 22:47] LABS: URINE APPEARANCE CLEAR; URINE BILIRUBIN NEGATIVE (NEGATIVE); URINE BLOOD NEGATIVE (NEGATIVE); URINE COLOR DKYELLOW; URINE GLUCOSE (UA) NEGATIVE (NEGATIVE); URINE KETONE NEGATIVE (NEGATIVE); URINE NITRITE NEGATIVE (NEGATIVE); URINE PROTEIN NEGATIVE (NEGATIVE); URINE UROBILINOGEN 2.0 E.U/dl E.U./dl (0.2-1.0)
[2016-08-01 22:50] LABS: URINE LEUK ESTERASE 3+ (NEGATIVE)
[2016-08-01 22:56] LABS: CALCIUM OXALATE CRYSTALS RARE /hpf (NONE SEEN); URINE MUCUS RARE; URINE RBC 4 /hpf (0-3); URINE WBC 6 /hpf (3-5)
[2016-08-02] MEDS: chlordiazePOXIDE HCL 25 MG CAPSULE PO SCH ×4 (05:43→22:08)
[2016-08-02] MEDS: CYCLOBENZAPRINE HCL 10 MG TABLET (FP) PO PRN ×2 (05:45→15:34)
[2016-08-02] MEDS: chlordiazePOXIDE HCL 25 MG CAPSULE PO PRN ×2 (07:50→12:56)
[2016-08-02] MEDS ORDERED: METHADONE HCL 10 MG TABLET (FOR DETOX USE ONLY) PO SCH (10:00)
--- NOTE | 2016-08-02 10:00 | PN ---
[facility] CIWA - CIWA Score Nausea/Vomitin Muscle Tremors: 3 Anxiety: 3 Agitation: 2 Paroxysmal Sweats: 1-Minimal Palms Moist Orientation: 0-Oriented Tacttile Disturbances: 1-Very Mild Itch/Numbness Auditory Disturbances: 1-Very Mild Visual Disturbances: 1-Very Mild Sensitivity Headache: 2-Mild CIWA-Ar Total Score: 17 BHS COWS - Scale Resting Pulse: 2= [place] 101-120 Sweatin= No chills or Flushing Restless Observation: 3= Extraneous Movement Pupil Size: 1= Pupils >than Normal Bone or Joint Aches: 2= Severe Diffuse Aches Runny Nose/ Eye Tearin= Runny Nose/Eyes GI Upset > 30mins: 3= Vomiting/Diarrhea Tremor Observation of Outstretched Hands: 2= Slight Tremor Visible Yawning Observation: 1= 1-2x During Session Anxiety or Irritability: 2=Irritable/Anxious Goose Flesh Skin: 0=Smooth Skin COWS Score: 18 [facility] Progress Note (SOAP) Subjective: ALERT,IRRITABLE,ANXIOUS,INTERRUPTED SLEEP,TREMOR,PAIN IN THE BODY AND BACK Objective: 08/02/16 09:58 Vital Signs Temperature 98.4 F 08/02/16 09:48 Pulse Rate 102 H 08/02/16 09:48 Respiratory Rate 16 08/02/16 09:48 Blood Pressure 123/59 08/02/16 09:48 O2 Sat by Pulse Oximetry (%) EKG NSR,NORMAL ECG Laboratory Last Values Urine Color Dkyellow 08/01/16 21:11 Urine Appearance Clear 08/01/16 21:11 Urine pH 5.0 (5.0-8.0) D 08/01/16 21:11 Ur Specific [place] 1.030 (1.001-1.035) 08/01/16 21:11 Urine Protein Negative (NEGATIVE) 08/01/16 21:11 Urine Glucose (UA) Negative (NEGATIVE) 08/01/16 21:11 Urine Ketones Negative (NEGATIVE) 08/01/16 21:11 Urine Blood Negative (NEGATIVE) 08/01/16 21:11 Urine Nitrite Negative (NEGATIVE) 08/01/16 21:11 Urine Bilirubin Negative (NEGATIVE) 08/01/16 21:11 Urine Urobilinogen 2.0 e.u/dl E.U./dl (0.2-1.0) H 08/01/16 21:11 Ur Leukocyte Esterase 3+ (NEGATIVE) H D 08/01/16 21:11 Urine RBC 4 /hpf (0-3) 08/01/16 21:11 Urine WBC 6 /hpf (3-5) 08/01/16 21:11 Ur Epithelial Cells Few /hpf (FEW) 08/01/16 21:11 Calcium Oxalate Crystal Rare /hpf (NONE SEEN) 08/01/16 21:11 Urine Mucus Rare 08/01/16 21:11 LABS PENDING Assessment: 08/02/16 09:59 WITHDRAWAL SYMPTOM Plan: CONTINUE DETOX
[2016-08-02] MEDS: NICOTINE 14 MG/24 HOURS TOPICAL PATCH TD SCH (10:14)
[2016-08-02] MEDS: PRENATAL VITAMINS W/ FOLIC ACID TABLET (FP) PO SCH (10:14)
[2016-08-02 10:40] LABS: MCHC 33.9 g/dl (32.0-36.0); MEAN CELL VOLUME 82.7 fl (80-96); MEAN PLT VOLUME 12.4 fl (7.5-11.1); PLATELET COUNT 117 K/MM3 (134-434); RDW 15.9 % (11.6-15.6); WHITE BLOOD COUNT 7.4 K/mm3 (4.0-10.0)
[2016-08-02 10:47] LABS: ALBUMIN 3.3 g/dl (3.4-5.0); ANION GAP 6 (8-16); CALCIUM 8.9 mg/dL (8.5-10.1); CO2 29 mmol/L (21-32); GLUCOSE,RANDOM 84 mg/dL (74-106)
[2016-08-02 10:53] LABS: ALK PHOS 78 U/L (45-117); BILIRUBIN,TOTAL 0.5 mg/dL (0.2-1.0); CREATININE 0.6 mg/dL (0.55-1.02); SGOT/AST 23 U/L (15-37); SGPT/ALT 82 U/L (12-78); TOT PROT 6.7 g/dl (6.4-8.2)
--- NOTE | 2016-08-02 13:35 | CONSULT ---
[facility] Psychiatric Consult - Data Date of interview: 08/02/16 Admission source: [facility] Identifying data: Another admission to [facility] for this 36 y/o female seeking detox treatment for alcohol,xanax and heroin dependence.Patient is single.a mother of two,domiciled,unemployed and supported on SSI benefits. Substance Abuse History: - Smoking Cessation. Smoking history: Current every day smoker. Have you smoked in the past 12 months: Yes. Aproximately how many cigarettes per day: 10. Cigars Per Day: 0. Hx Chewing Tobacco Use: No. Initiated information on smoking cessation: Yes. 'Breaking Loose' booklet given : 08/01/16. - Substance & Tx. History. Hx Alcohol Use: Yes. Hx Substance Use : Yes. Substance Use Type: Alcohol, Opiates, Tranquilizers. Hx Substance Use Treatment: Yes. - Substances Abused. Alcohol. Route: Oral. Frequency: Daily. Amount used: liquor- 3 pints VOLKA+ beer- 1 six pack. Age of first use : 29. Date of Last Use: 08/01/16. Alprazolam (Xanax). Route: Oral. Frequency: Daily. Amount used: 2mg. Age of first use: 29. Date of Last Use: 07/31/16. Heroin. Route: Injection. Frequency: Daily. Amount used: 20 bags. Age of first use: 17. Date of Last Use: 08/01/16. Confirmed by patient. Medical History: Anemia and a history of neurosurgery for AVM (age 20).Noted report of past CVA in 2000. Psychiatric History: No history of psychiatric hospitalizations.Brief contact, eight years ago,with a private psychiatrist to address depression/anxiety.At the time,the patient was prescribed seroquel and lexapro.Ms Farfan reports that she dropped out of treatment several years ago.No OPD care providers.In this interview,the patient endorses chronic insomnia and she requests the addition of seroquel to the current regimen of medications.No history of suicide attempts. Physical/Sexual Abuse/Trauma History: Patient denies. Additional Comment: Urine Drug Screen Results: OPI-Opiates, BZO-Benzodiazepines , MTD-Methadone.Noted. Mental Status Exam - Mental Status Exam Alert and Oriented to: Time, Place, Person Cognitive Function: Good Patient Appearance: Well Groomed Mood: Anxious, Apprehensive, Hopeful Affect: Mood Congruent Patient Behavior: Appropriate, Cooperative Speech Pattern: Clear Voice Loudness: Normal Thought Process: Goal Oriented Thought Disorder: Not Present Hallucinations: Denies Suicidal Ideation: Denies Homicidal Ideation: Denies Insight/Judgement: Poor Sleep: Poorly, Difficulty falling asleep Appetite: Good Muscle strength/Tone: Normal Gait/Station: Normal Psychiatric Findings - Problem List ([place] 1, 2,3) (1) Alcohol dependence with uncomplicated withdrawal Current Visit: Yes Status: Acute (2) Opioid dependence with withdrawal Current Visit: Yes Status: Acute (3) Sedative, hypnotic or anxiolytic dependence with withdrawal, uncomplicated Current Visit: Yes Status: Acute (4) Nicotine dependence Current Visit: Yes Status: Acute Qualifiers: Nicotine product type: cigarettes Substance use status: in withdrawal Qualified Code(s): F17.213 - Nicotine dependence, cigarettes, with withdrawal (5) Drug-induced mood disorder Current Visit: Yes Status: Acute (6) Chronic back pain Current Visit: Yes Status: Chronic Qualifiers: Back pain location: low back pain Back pain laterality: bilateral Sciatica presence: without sciatica Qualified Code(s): M54.5 - Low back pain; G89.29 - Other chronic pain (7) History of scoliosis Current Visit: Yes Status: Chronic (8) Insomnia Current Visit: Yes Status: Acute - Initial Treatment Plan Initial Treatment Plan: Psychoeducation.Detoxification.Seroquel 100 mg po hs.Side effects/benefits discussed with the patient.She agrees with this plan of care.Observation.
[2016-08-02] MEDS: AMMONIUM LACTATE 12% LOTION 225 GM BOTTLE TP SCH ×2 (14:06→22:09)
--- NOTE | 2016-08-02 18:28 | EKG ---
Test Reason : Blood Pressure : / mmHG Vent. Rate : 084 BPM Atrial Rate : 084 BPM P-R Int : 170 ms QRS Dur : 074 ms QT Int : 328 ms P-R-T Axes : 063 053 051 degrees QTc Int : 387 ms NORMAL SINUS RHYTHM POSSIBLE LEFT ATRIAL ENLARGEMENT SEPTAL INFARCT , AGE UNDETERMINED ABNORMAL ECG WHEN COMPARED WITH ECG OF 17-JUN-2016 21:43, SEPTAL INFARCT IS NOW PRESENT Confirmed by KAIDEN KNUTSON, HIWOT ([id number]) on 08/02/2016 6:28:27 PM Referred By: Confirmed By:HIWOT RICHEY MD
[2016-08-02] MEDS: THIAMINE HCL 100 MG TABLET (FP) PO SCH (22:07)
[2016-08-02] MEDS: QUEtiapine FUMARATE 100 MG TABLET (FP) PO SCH (22:08)
[2016-08-02] MEDS: MINERAL OIL/PETROLAT/WATER TOPICAL CREAM 113 GM JAR TP SCH (22:53)
[2016-08-03] MEDS: CYCLOBENZAPRINE HCL 10 MG TABLET (FP) PO PRN ×3 (05:16→22:15)
[2016-08-03] MEDS: chlordiazePOXIDE HCL 25 MG CAPSULE PO SCH ×3 (05:18→16:36)
[2016-08-03] MEDS: PRENATAL VITAMINS W/ FOLIC ACID TABLET (FP) PO SCH (10:08)
[2016-08-03] MEDS: NICOTINE 14 MG/24 HOURS TOPICAL PATCH TD SCH (10:08)
[2016-08-03] MEDS: AMMONIUM LACTATE 12% LOTION 225 GM BOTTLE TP SCH ×2 (10:09→22:15)
[2016-08-03] MEDS: METHADONE HCL 5 MG TABLET (FOR DETOX USE ONLY) PO SCH (10:09)
[2016-08-03] MEDS: chlordiazePOXIDE HCL 25 MG CAPSULE PO PRN (11:52)
--- NOTE | 2016-08-03 13:39 | PN ---
S CIWA - CIWA Score Nausea/Vomitin Muscle Tremors: 3 Anxiety: 4-Mod. Anxious/Guarded Agitation: 4-Moderately Restless Paroxysmal Sweats: No Perspiration Orientation: 0-Oriented Tacttile Disturbances: 1-Very Mild Itch/Numbness Auditory Disturbances: 0-None Visual Disturbances: 0-None Headache: 2-Mild CIWA-Ar Total Score: 17 BHS COWS - Scale Resting Pulse: 1= [place] 81-100 Sweatin= Chills/Flushing Restless Observation: 3= Extraneous Movement Pupil Size: 0= Normal to Room Light Bone or Joint Aches: 2= Severe Diffuse Aches Runny Nose/ Eye Tearin= Runny Nose/Eyes GI Upset > 30mins: 2= Nausea/Diarrhea Tremor Observation of Outstretched Hands: 2= Slight Tremor Visible Yawning Observation: 0= None Anxiety or Irritability: 2=Irritable/Anxious Goose Flesh Skin: 0=Smooth Skin COWS Score: 15 S Progress Note (SOAP) Subjective: Stomach pain, nausea, tremor, sweating, headache Objective: 08/03/16 13:37 Last Vital Signs Temp Pulse Resp BP Pulse Ox 99.3 F 97 H 18 99/60 08/03/16 10:00 08/03/16 10:00 08/03/16 10:00 08/03/16 10:00 Laboratory Tests 08/01/16 08/02/16 08/02/16 21:11 08:00 08:00 WBC 7.4 RBC 4.59 Hgb 12.9 Hct 37.9 MCV 82.7 MCHC 33.9 RDW 15.9 H Plt Count 117 L MPV 12.4 H Sodium 139 Potassium 4.5 Chloride 104 Carbon Dioxide 29 Anion Gap 6 L BUN 14 Creatinine 0.6 Creat Clearance w eGFR > 60 Random Glucose 84 Calcium 8.9 Total Bilirubin 0.5 D AST 23 D ALT 82 H D Alkaline Phosphatase 78 D Total Protein 6.7 Albumin 3.3 L Urine Color Dkyellow Urine Appearance Clear Urine pH 5.0 D Ur Specific [place] 1.030 Urine Protein Negative Urine Glucose (UA) Negative Urine Ketones Negative Urine Blood Negative Urine Nitrite Negative Urine Bilirubin Negative Urine Urobilinogen 2.0 e.u/dl H Ur Leukocyte Esterase 3+ H D Urine RBC 4 Urine WBC 6 Ur Epithelial Cells Few Calcium Oxalate Crystal Rare Urine Mucus Rare RPR Titer 08/02/16 08:00 WBC RBC Hgb Hct MCV MCHC RDW Plt Count MPV Sodium Potassium Chloride Carbon Dioxide Anion Gap BUN Creatinine Creat Clearance w eGFR Random Glucose Calcium Total Bilirubin AST ALT Alkaline Phosphatase Total Protein Albumin Urine Color Urine Appearance Urine pH Ur Specific [place] Urine Protein Urine Glucose (UA) Urine Ketones Urine Blood Urine Nitrite Urine Bilirubin Urine Urobilinogen Ur Leukocyte Esterase Urine RBC Urine WBC Ur Epithelial Cells Calcium Oxalate Crystal Urine Mucus RPR Titer Nonreactive Labs noted: abnormal UA Assessment: 08/03/16 13:39 Withdrawal symptoms Noted with abnormal UA Plan: Continue detox Abnormal UA: repeat UA, encouraged to drink lots of water
[2016-08-03] MEDS: diphenhydrAMINE HCL 50 MG CAPSULE PO PRN (22:12)
[2016-08-03] MEDS: chlordiazePOXIDE 5 MG CAPSULE PO SCH (22:12)
[2016-08-03] MEDS: QUEtiapine FUMARATE 100 MG TABLET (FP) PO SCH (22:12)
[2016-08-03] MEDS: MINERAL OIL/PETROLAT/WATER TOPICAL CREAM 113 GM JAR TP SCH (22:15)
[2016-08-03] MEDS: THIAMINE HCL 100 MG TABLET (FP) PO SCH (22:30)
[2016-08-04] MEDS: chlordiazePOXIDE 5 MG CAPSULE PO SCH ×4 (05:25→17:22)
[2016-08-04] MEDS: CYCLOBENZAPRINE HCL 10 MG TABLET (FP) PO PRN ×3 (05:26→22:18)
--- NOTE | 2016-08-04 09:36 | PN ---
[facility] Progress Note (SOAP) Subjective: sweats interrupted sleep agitation anxiety nausea Objective: 08/04/16 09:35 Vital Signs Temperature 98.2 F 08/04/16 05:51 Pulse Rate 88 08/04/16 05:51 Respiratory Rate 18 08/04/16 05:51 Blood Pressure 98/60 08/04/16 05:51 O2 Sat by Pulse Oximetry (%) awake/alert ambulating no acute distress Assessment: 08/04/16 09:36 withdrawal sx Plan: continue detox increase fluids tigan po prn
[2016-08-04] MEDS: PRENATAL VITAMINS W/ FOLIC ACID TABLET (FP) PO SCH (10:25)
[2016-08-04] MEDS: METHADONE HCL 5 MG TABLET (FOR DETOX USE ONLY) PO SCH (10:25)
[2016-08-04] MEDS: NICOTINE 14 MG/24 HOURS TOPICAL PATCH TD SCH (10:27)
[2016-08-04] MEDS: AMMONIUM LACTATE 12% LOTION 225 GM BOTTLE TP SCH ×2 (10:29→22:12)
[2016-08-04] MEDS ORDERED: TRIMETHOBENZAMIDE HCL 300 MG CAPSULE PO PRN (10:32)
[2016-08-04] MEDS: hydrOXYzine PAMOATE 50 MG CAPSULE (FP) PO PRN (10:36)
[2016-08-04 13:51] LABS: URINE APPEARANCE SLCLOUDY; URINE BILIRUBIN NEGATIVE (NEGATIVE); URINE BLOOD NEGATIVE (NEGATIVE); URINE COLOR YELLOW; URINE GLUCOSE (UA) NEGATIVE (NEGATIVE); URINE KETONE NEGATIVE (NEGATIVE); URINE NITRITE NEGATIVE (NEGATIVE); URINE PROTEIN NEGATIVE (NEGATIVE); URINE UROBILINOGEN NEGATIVE E.U./dl (0.2-1.0)
[2016-08-04 13:54] LABS: URINE LEUK ESTERASE 3+ (NEGATIVE)
[2016-08-04 14:03] LABS: URINE BACTERIA RARE /hpf (NONE SEEN); URINE RBC 5 /hpf (0-3); URINE WBC 22 /hpf (3-5)
[2016-08-04] MEDS: chlordiazePOXIDE HCL 25 MG CAPSULE PO PRN (14:03)
[2016-08-04] MEDS: QUEtiapine FUMARATE 100 MG TABLET (FP) PO SCH (22:12)
[2016-08-04] MEDS: chlordiazePOXIDE HCL 10 MG CAPSULE PO SCH (22:12)
[2016-08-04] MEDS: THIAMINE HCL 100 MG TABLET (FP) PO SCH (22:12)
[2016-08-04] MEDS: MINERAL OIL/PETROLAT/WATER TOPICAL CREAM 113 GM JAR TP SCH (22:15)
[2016-08-05] MEDS: chlordiazePOXIDE HCL 10 MG CAPSULE PO SCH ×3 (05:59→17:44)
[2016-08-05] MEDS: CYCLOBENZAPRINE HCL 10 MG TABLET (FP) PO PRN ×3 (05:59→22:18)
[2016-08-05] MEDS ORDERED: chlordiazePOXIDE 5 MG CAPSULE ONE (08:56)
--- NOTE | 2016-08-05 09:32 | PN ---
S Progress Note (SOAP) Subjective: ALERT,NO COMPLAINT Objective: 08/05/16 09:29 Vital Signs Temperature 98.1 F 08/05/16 05:48 Pulse Rate 81 08/05/16 05:48 Respiratory Rate 18 08/05/16 05:48 Blood Pressure 100/69 08/05/16 05:48 O2 Sat by Pulse Oximetry (%) Abnormal Lab Results 08/04/16 10:50 Ur Leukocyte Esterase 3+ H 08/05/16 09:30 Laboratory Results - last 24 hr 08/04/16 10:50 Urine Color Yellow Urine Appearance Slcloudy Urine pH 7.0 D Ur Specific [place] 1.014 Urine Protein Negative Urine Glucose (UA) Negative Urine Ketones Negative Urine Blood Negative Urine Nitrite Negative Urine Bilirubin Negative Urine Urobilinogen Negative Ur Leukocyte Esterase 3+ H Urine RBC 5 Urine WBC 22 Ur Epithelial Cells Moderate Urine Bacteria Rare Assessment: 08/05/16 09:30 08/05/16 09:30 WITHDRAWAL SYMPTOM Plan: CONTINUE DETOX,PATIENT IS ASYMPTOMATIC,NO URINARY PROBLEM,ADVISE FLUID AND WATER , DISCHARGE IN AM,FOLLOW UP WITH PMD FOR MEDICAL PROBLEM
[2016-08-05] MEDS ORDERED: METHADONE HCL 10 MG TABLET (FOR DETOX USE ONLY) PO SCH (10:00)
[2016-08-05] MEDS: PRENATAL VITAMINS W/ FOLIC ACID TABLET (FP) PO SCH (10:36)
[2016-08-05] MEDS: NICOTINE 14 MG/24 HOURS TOPICAL PATCH TD SCH (10:37)
[2016-08-05] MEDS: AMMONIUM LACTATE 12% LOTION 225 GM BOTTLE TP SCH ×2 (10:38→22:17)
[2016-08-05] MEDS: hydrOXYzine PAMOATE 50 MG CAPSULE (FP) PO PRN (14:28)
[2016-08-05] MEDS: QUEtiapine FUMARATE 100 MG TABLET (FP) PO SCH (22:01)
[2016-08-05] MEDS: THIAMINE HCL 100 MG TABLET (FP) PO SCH (22:01)
[2016-08-06] MEDS: CYCLOBENZAPRINE HCL 10 MG TABLET (FP) PO PRN (05:43)
[2016-08-06] MEDS ORDERED: METHADONE HCL 5 MG TABLET (FOR DETOX USE ONLY) PO SCH (06:00)
--- NOTE | 2016-08-06 08:30 | DS ---
[facility] Detox Discharge Summary Admission Date: 08/01/16 Discharge Date: 08/06/16 - History Present History: Alcohol Dependence, Opioid Dependence, Sedative Dependence - Physical Exam Results Vital Signs: Vital Signs Temperature 98.1 F 08/06/16 06:36 Pulse Rate 74 08/06/16 06:36 Respiratory Rate 18 08/06/16 06:36 Blood Pressure 105/67 08/06/16 06:36 O2 Sat by Pulse Oximetry (%) - Treatment Hospital Course: Detox Protocol Followed, Detoxed Safely, Responded well, Discharged Condition Good, Rehab Referral Accepted - Medication Discharge Medications: Ambulatory Orders Cyclobenzaprine HCl [Flexeril -] 10 mg PO TID 04/18/16 Quetiapine Fumarate [Seroquel] 100 tab PO HS #30 tablet 04/21/16 Quetiapine Fumarate [Seroquel] 100 mg PO HS #30 tablet 08/02/16 - Diagnosis (1) Alcohol dependence with uncomplicated withdrawal Current Visit: Yes Status: Chronic (2) Drug-induced mood disorder Current Visit: Yes Status: Acute (3) Dry skin dermatitis Current Visit: Yes Status: Acute (4) Insomnia Current Visit: Yes Status: Acute (5) Nicotine dependence Current Visit: Yes Status: Chronic Qualifiers: Nicotine product type: cigarettes Substance use status: uncomplicated Qualified Code(s): F17.210 - Nicotine dependence, cigarettes, uncomplicated (6) Opioid dependence with withdrawal Current Visit: Yes Status: Chronic (7) Sedative, hypnotic or anxiolytic dependence with withdrawal, uncomplicated Current Visit: Yes Status: Chronic (8) Weight loss Current Visit: Yes Status: Acute (9) Chronic back pain Current Visit: Yes Status: Chronic Qualifiers: Back pain location: low back pain Back pain laterality: bilateral Sciatica presence: without sciatica Qualified Code(s): M54.5 - Low back pain; G89.29 - Other chronic pain (10) History of scoliosis Current Visit: Yes Status: Chronic (11) Depressive disorder Current Visit: Yes Status: Suspected (12) Bilateral swelling of feet Current Visit: No Status: Chronic (13) Swelling of both ankles Current Visit: No Status: Chronic (14) Swelling of both hands Current Visit: No Status: Chronic - AMA Did Patient Leave Against Medical Advice: No
[2016-08-06] MEDS: hydrOXYzine PAMOATE 50 MG CAPSULE (FP) PO PRN (09:52)
[2016-08-06 10:25] VITALS: BP 117/73; PULSE 94; TEMP 98.2
== END 2016-08-06 09:55 | disposition home or self-care (01) | DRG 773 ==
LOC: YASAS 12:57 → Y6N 18:15
PROVIDERS: ADMIT Internal Medicine; ATTEND Internal Medicine
PROC: HZ2ZZZZ Detoxification Services for Substance Abuse Treatment (ICD-10-PCS; principal; 2016-08-01)
DX: F11.23 Opioid dependence with withdrawal (principal); F13.230 Sedative, hypnotic or anxiolytic dependence with withdrawal, uncomplicated; F10.230 Alcohol dependence with withdrawal, uncomplicated; F17.210 Nicotine dependence, cigarettes, uncomplicated; F32.9 Major depressive disorder, single episode, unspecified; R00.0 Tachycardia, unspecified; L85.3 Xerosis cutis; R82.90 Unspecified abnormal findings in urine; G47.00 Insomnia, unspecified; M54.5 Low back pain; G89.29 Other chronic pain; M79.89 Other specified soft tissue disorders; M25.472 Effusion, left ankle; M25.471 Effusion, right ankle; Z87.898 Personal history of other specified conditions; Z86.73 Personal history of transient ischemic attack (TIA), and cerebral infarction without residual deficits; Z86.2 Personal history of diseases of the blood and blood-forming organs and certain disorders involving the immune mechanism; Z98.1 Arthrodesis status
CPT/HCPCS: 36415; 80053; 81003; 81015; 85027; 86593; 93005; 93010

== ENCOUNTER 2016-08-30 12:23 | Inpatient (IN) | payer OTHER ==
[2016-08-30 13:52] VITALS: BMI 28.3
--- NOTE | 2016-08-30 15:09 | HP ---
COWS - Scale Resting Pulse: 1= [place] 81-100 Sweatin=Flushed/Facial Moisture Restless Observation: 3= Extraneous Movement Pupil Size: 1= Pupils >than Normal Bone or Joint Aches: 2= Severe Diffuse Aches Runny Nose/ Eye Tearin= Runny Nose/Eyes GI Upset > 30mins: 2= Nausea/Diarrhea Tremor Observation: 2= Slight Tremor Visible Yawning Observation: 1= 1-2x During Session Anxiety or Irritability: 2=Irritable/Anxious Goose Flesh Skin: 3=Piloerection COWS Score: 21 CIWA Score - CIWA Score Nausea/Vomitin Muscle Tremors: 3 Anxiety: 3 Agitation: 2 Paroxysmal Sweats: 3 Orientation: 1-Uncertain about Date Tacttile Disturbances: 0-None Auditory Disturbances: 0-None Visual Disturbances: 1-Very Mild Sensitivity Headache: 2-Mild CIWA-Ar Total Score: 18 Admission ROS BHS - HPI Chief Complaint: Need help as I'm losing my family and kids Allergies/Adverse Reactions: Allergies Allergy/AdvReac Type Severity Reaction Status Date / Time phenobarbital Allergy Severe Rash Verified 08/01/16 18:30 History of Present Illness: 36 y/o woman with longstanding h/o opiate, benzo and alcohol dependence presents for detox. She was recently discharged from [facility] following successful completion of detox. She has been in detox numerous times, was sober from 2000 to 2009.She is also requesting rehab after detox. Exam Limitations: No Limitations - Ebola screening Have you traveled outside of the country in the last 21 days: No Have you had contact with anyone from an Ebola affected area: No Have you been sick,other than usual withdrawal symptoms: No Do you have a fever: No - Review of Systems Constitutional: Chills, Loss of Appetite, Weakness EENT: reports: Nose Congestion Respiratory: reports: No Symptoms reported Cardiac: reports: No Symptoms Reported GI: reports: Nausea, Poor Appetite, Abdominal cramping : reports: No Symptoms Reported Musculoskeletal: reports: Back Pain Integumentary: reports: No Symptoms Reported Neuro: reports: Headache, Tremors Endocrine: reports: Unexplained Weight Loss Hematology: reports: Anemia Psychiatric: reports: Anxious, Depressed Other Systems: Reviewed and Negative Patient History - Patient Medical History Hx Anemia: Yes Hx Asthma: No Hx Chronic Obstructive Pulmonary Disease (COPD): No Hx Cancer: No Hx Cardiac Disorders: No Hx Congestive Heart Failure: No Hx Hypertension: No Hx Hypercholesterolemia: No Hx Pacemaker: No HX Cerebrovascular Accident: Yes (2000) Hx Seizures: No Hx Dementia: No Hx Diabetes: No Hx Gastrointestinal Disorders: No Hx Liver Disease: No Hx Genitourinary Disorders: No Hx Sexually Transmitted Disorders: No Hx Renal Disease (ESRD): No Hx Thyroid Disease: No Hx Human Immunodeficiency Virus (HIV): No Hx Hepatitis C: No Hx Depression: Yes (on medication) Hx Suicide Attempt: No Hx Bipolar Disorder: No Hx Schizophrenia: No - Patient Surgical History Past Surgical History: Yes Hx Neurologic Surgery: Yes (s/p AVM repair) Hx Cataract Extraction: No Hx Cardiac Surgery: No Hx Lung Surgery: No Hx Breast Surgery: No Hx Breast Biopsy: No Hx Abdominal Surgery: No Hx Appendectomy: No Hx Cholecystectomy: No Hx Genitourinary Surgery: No Hx Section: No Hx Orthopedic Surgery: No Hx Hysterectomy: No Anesthesia Reaction: No - PPD History Previous Implant?: Yes Documented Results: Negative w/proof Implanted On Prior R Admission?: Yes Date: 12/19/15 Results: 0MM PPD to be Administered?: No - Reproductive History Patient is a Female of Child Bearing Age (11 -55 yrs old): Yes Last Menstrual Period: 07/11/16 LMP comment: normal flow Patient : No - Smoking Cessation Smoking history: Current every day smoker Have you smoked in the past 12 months: Yes Aproximately how many cigarettes per day: 10 Cigars Per Day: 0 Hx Chewing Tobacco Use: No Initiated information on smoking cessation: Yes 'Breaking Loose' booklet given: 08/30/16 - Substance & Tx. History Hx Alcohol Use: Yes Hx Substance Use: Yes Substance Use Type: Alcohol Hx Substance Use Treatment: Yes - Substances Abused Alcohol Route: Oral Frequency: Daily Amount used: 3 pint of vodka, 1 6 pack beer Age of first use: 29 Date of Last Use: 08/30/16 Alprazolam (Xanax) Route: Oral Frequency: Daily Amount used: 2mg Age of first use: 29 Date of Last Use: 08/30/16 Heroin Route: Injection Frequency: Daily Amount used: 20 bags Age of first use: 17 Date of Last Use: 08/30/16 Family Disease History - Family Disease History Family Disease History: Heart Disease: Mother, Other: Father () Admission Physical Exam [facility] - Vital Signs Vital Signs: Vital Signs - 24 hr 08/30/16 13:48 Temperature 97.1 F L Pulse Rate 93 H Respiratory 20 Rate Blood Pressure 127/71 - Physical General Appearance: Yes: No Apparent Distress, Disheveled HEENTM: Yes: EOMI, Hearing grossly Normal, Normocephalic, Normal Voice, Nasal Congestion Respiratory: Yes: Chest Non-Tender, Lungs Clear, Normal Breath Sounds, No Respiratory Distress, No Accessory Muscle Use Neck: Yes: No masses,lesions,Nodules, Supple, Trachea in good position Breast: Yes: Breast Exam Deferred Cardiology: Yes: Regular Rhythm, Regular Rate, S1, S2 Abdominal: Yes: Normal Bowel Sounds, Soft Genitourinary: Yes: Within Normal Limits Back: Yes: Decreased Range of Motion Musculoskeletal: Yes: Pelvis Stable, Back pain, Joint swelling Extremities: Yes: Pedal Edema (bilateral) 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: digital marketing program manager II-XII NML intact, Alert, Motor Strength 5/5, Normal Response Integumentary: Yes: Clammy, Track Goldberg (both arms) Lymphatic: Yes: Within Normal Limits - Diagnostic (1) Alcohol dependence with uncomplicated withdrawal Current Visit: No Status: Chronic (2) Chronic back pain Current Visit: No Status: Chronic Qualifiers: Back pain location: low back pain Back pain laterality: bilateral Sciatica presence: without sciatica Qualified Code(s): M54.5 - Low back pain; G89.29 - Other chronic pain (3) Nicotine dependence Current Visit: Yes Status: Acute Qualifiers: Nicotine product type: cigarettes Substance use status: uncomplicated Qualified Code(s): F17.210 - Nicotine dependence, cigarettes, uncomplicated (4) Opioid dependence with withdrawal Current Visit: Yes Status: Acute (5) Sedative, hypnotic or anxiolytic dependence with withdrawal, uncomplicated Current Visit: Yes Status: Acute Cleared for Admission [facility] - Detox or Rehab [facility] Level of Care: Medically Managed Detox Regimen/Protocol: Methadone/Librium [facility] Breath Alcohol Content Breath Alcohol Content: 0.009 Urine Pregancy Test - Result Urine Test Results: Negative- NO Line Present Urine Drug Screen - Results Drug Screen Negative: No Urine Drug Screen Results: OPI-Opiates, BZO-Benzodiazepines, MTD-Methadone
[2016-08-30] MEDS ORDERED: MENTHOL/PHENOL 1 EACH UD MM PRN (15:24)
[2016-08-30] MEDS ORDERED: NICOTINE POLACRILEX 2 MG GUM BUC PRN (15:24)
[2016-08-30] MEDS ORDERED: IBUPROFEN 400 MG TABLET (FP) PO PRN (15:24)
[2016-08-30] MEDS ORDERED: ACETAMINOPHEN 325 MG TABLET (FP) PO PRN (15:24)
[2016-08-30] MEDS ORDERED: chlordiazePOXIDE HCL 25 MG CAPSULE PO ONE (15:24)
[2016-08-30] MEDS ORDERED: MAGNESIUM CITRATE 300 ML BOTTLE PO PRN (15:24)
[2016-08-30] MEDS ORDERED: MAGNESIUM HYDROX 2400MG/30ML ORAL SUSPENSION 30 ML CUP PO PRN (15:24)
[2016-08-30] MEDS ORDERED: guaiFENesin/D-METHORPHAN HB 10 ML UNIT-DOSE CUPS PO PRN (15:24)
[2016-08-30] MEDS ORDERED: MAG HYDROX/AL HYDROX/SIMETH 30 ML UNIT-DOSE CUP PO PRN (15:24)
[2016-08-30] MEDS ORDERED: LOPERAMIDE HCL 2 MG CAPSULE PO PRN (15:24)
[2016-08-30] MEDS ORDERED: P-EPHED 60MG/TRIPROLIDI 2.5MG TABLET PO PRN (15:24)
[2016-08-30] MEDS ORDERED: METHADONE HCL 10 MG TABLET (FOR DETOX USE ONLY) PO ONE ×2 (19:00→23:00)
[2016-08-30] MEDS: chlordiazePOXIDE HCL 25 MG CAPSULE PO SCH ×2 (19:16→23:03)
[2016-08-30] MEDS: NICOTINE 14 MG/24 HOURS TOPICAL PATCH TD SCH (19:17)
[2016-08-30] MEDS: THIAMINE HCL 100 MG TABLET (FP) PO SCH (23:03)
[2016-08-30] MEDS: CYCLOBENZAPRINE HCL 10 MG TABLET (FP) PO SCH (23:03)
[2016-08-30] MEDS: diphenhydrAMINE HCL 50 MG CAPSULE PO PRN (23:06)
[2016-08-31] MEDS: chlordiazePOXIDE HCL 25 MG CAPSULE PO SCH ×4 (06:16→22:29)
[2016-08-31] MEDS: CYCLOBENZAPRINE HCL 10 MG TABLET (FP) PO SCH ×3 (06:16→22:29)
[2016-08-31] MEDS ORDERED: METHADONE HCL 10 MG TABLET (FOR DETOX USE ONLY) PO SCH (10:00)
--- NOTE | 2016-08-31 10:13 | PN ---
[facility] CIWA - CIWA Score Nausea/Vomitin-No Nausea/No Vomiting Muscle Tremors: 4-Moderate,w/Arms Extend Anxiety: 4-Mod. Anxious/Guarded Agitation: 4-Moderately Restless Paroxysmal Sweats: 3 Orientation: 0-Oriented Tacttile Disturbances: 0-None Auditory Disturbances: 0-None Visual Disturbances: 0-None Headache: 0-None Present CIWA-Ar Total Score: 15 BHS COWS - Scale Resting Pulse: 0= ME 80 or Below Sweatin=Flushed/Facial Moisture Restless Observation: 1= Difficult to Sit Still Pupil Size: 0= Normal to Room Light Bone or Joint Aches: 2= Severe Diffuse Aches Runny Nose/ Eye Tearin= Runny Nose/Eyes GI Upset > 30mins: 2= Nausea/Diarrhea Tremor Observation of Outstretched Hands: 2= Slight Tremor Visible Yawning Observation: 1= 1-2x During Session Anxiety or Irritability: 2=Irritable/Anxious Goose Flesh Skin: 0=Smooth Skin COWS Score: 14 S Progress Note (SOAP) Subjective: Sweating,anxiety,tremors,interrupted sleep,nausea,restless. Objective: 08/31/16 10:12 Vital Signs - 8 hr 08/31/16 08/31/16 04:01 06:00 Temperature 97.5 F L Pulse Rate 73 Respiratory 18 18 Rate Blood Pressure 112/61 Assessment: 08/31/16 10:12 Withdrawal sx. Plan: Continue detox
[2016-08-31] MEDS: PRENATAL VITAMINS W/ FOLIC ACID TABLET (FP) PO SCH (10:45)
[2016-08-31] MEDS: NICOTINE 14 MG/24 HOURS TOPICAL PATCH TD SCH (10:46)
--- NOTE | 2016-08-31 12:44 | EKG ---
Test Reason : Blood Pressure : / mmHG Vent. Rate : 083 BPM Atrial Rate : 083 BPM P-R Int : 154 ms QRS Dur : 078 ms QT Int : 350 ms P-R-T Axes : 070 041 045 degrees QTc Int : 411 ms NORMAL SINUS RHYTHM POSSIBLE LEFT ATRIAL ENLARGEMENT WHEN COMPARED WITH ECG OF 01-AUG-2016 19:42, CRITERIA FOR SEPTAL INFARCT ARE NO LONGER PRESENT Confirmed by ABDULAZIZ WILKINSON MD ([id number]) on 08/31/2016 12:43:58 PM Referred By: Confirmed By:ABDULAZIZ WILKINSON MD
[2016-08-31] MEDS: chlordiazePOXIDE HCL 25 MG CAPSULE PO PRN (14:50)
[2016-08-31 19:37] LABS: URINE APPEARANCE CLEAR; URINE BILIRUBIN NEGATIVE (NEGATIVE); URINE BLOOD NEGATIVE (NEGATIVE); URINE COLOR LTYELLOW; URINE GLUCOSE (UA) NEGATIVE (NEGATIVE); URINE KETONE NEGATIVE (NEGATIVE); URINE NITRITE NEGATIVE (NEGATIVE); URINE PROTEIN NEGATIVE (NEGATIVE); URINE UROBILINOGEN NEGATIVE E.U./dl (0.2-1.0)
[2016-08-31 19:38] LABS: URINE LEUK ESTERASE TRACE (NEGATIVE)
[2016-08-31 19:53] LABS: URINE BACTERIA RARE /hpf (NONE SEEN); URINE MUCUS RARE; URINE RBC <1 /hpf (0-3); URINE WBC <1 /hpf (3-5)
[2016-08-31] MEDS: THIAMINE HCL 100 MG TABLET (FP) PO SCH (22:29)
[2016-08-31] MEDS: diphenhydrAMINE HCL 50 MG CAPSULE PO PRN (22:29)
[2016-09-01] MEDS: chlordiazePOXIDE HCL 25 MG CAPSULE PO SCH ×2 (05:30→11:00)
[2016-09-01] MEDS: CYCLOBENZAPRINE HCL 10 MG TABLET (FP) PO SCH ×3 (05:30→22:11)
[2016-09-01] MEDS: chlordiazePOXIDE HCL 25 MG CAPSULE PO PRN ×3 (08:42→18:20)
[2016-09-01 10:07] LABS: MCH 28.4 pg (25.7-33.7); MCHC 34.1 g/dl (32.0-36.0); MEAN CELL VOLUME 83.2 fl (80-96); MEAN PLT VOLUME 11.6 fl (7.5-11.1); PLATELET COUNT 162 K/MM3 (134-434); RDW 14.9 % (11.6-15.6)
--- NOTE | 2016-09-01 10:34 | CONSULT ---
[facility] Psychiatric Consult - Data Date of interview: 09/01/16 Admission source: [facility] Identifying data: This is 36 years old female with no psychiatric hospitalizatiojn history intoxicated with : Alcohol, Opioids, Xanax, and Nicotine Substance Abuse History: Smoking history: Current every day smoker. Have you smoked in the past 12 months: Yes. Aproximately how many cigarettes per day: 10. Cigars Per Day: 0. Hx Chewing Tobacco Use: No. Initiated information on smoking cessation: Yes. 'Breaking Loose' booklet given: 08/30/16. - Substance & Tx. History. Hx Alcohol Use: Yes. Hx Substance Use: Yes. Substance Use Type : Alcohol. Hx Substance Use Treatment: Yes. - Substances Abused. Alcohol. Route: Oral. Frequency: Daily. Amount used: 3 pint of vodka, 1 6 pack beer. Age of first use: 29. Date of Last Use: 08/30/16. Alprazolam (Xanax). Route: Oral. Frequency: Daily. Amount used: 2mg. Age of first use: 29. Date of Last Use: 08/30/16. Heroin. Route: Injection. Frequency: Daily. Amount used: 20 bags. Age of first use: 17. Date of Last Use: 08/30/16 Medical History: Denies Psychiatric History: Patient reprots history of anxiety and depressionl, reports taking prior to admission: Flexeril 10mg po tid Physical/Sexual Abuse/Trauma History: Denies Additional Comment: Flexeril 10mg po tid Mental Status Exam - Mental Status Exam Alert and Oriented to: Person Cognitive Function: Fair Patient Appearance: Unkempt Mood: Sad Affect: Flat Patient Behavior: Sedated Speech Pattern: Delayed Voice Loudness: Mildly Soft/Quiet Thought Process: Circumstantial Thought Disorder: Being Controlled Hallucinations: Denies Suicidal Ideation: Denies Homicidal Ideation: Denies Insight/Judgement: Fair Sleep: Difficulty falling asleep Appetite: Fair Muscle strength/Tone: Mild Hypotonicity Gait/Station: Shuffling Additional Comments: Flexeril 10mg po tid Psychiatric Findings - Problem List ([place] 1, 2,3) (1) Nicotine dependence Current Visit: Yes Status: Acute Qualifiers: Nicotine product type: cigarettes Substance use status: uncomplicated Qualified Code(s): F17.210 - Nicotine dependence, cigarettes, uncomplicated (2) Opioid dependence with withdrawal Current Visit: Yes Status: Acute (3) Sedative, hypnotic or anxiolytic dependence with withdrawal, uncomplicated Current Visit: Yes Status: Acute (4) Drug-induced mood disorder Current Visit: No Status: Acute (5) Weight loss Current Visit: No Status: Acute (6) Alcohol dependence with uncomplicated withdrawal Current Visit: No Status: Chronic (7) Depressive disorder Current Visit: No Status: Suspected - Initial Treatment Plan Initial Treatment Plan: Flexeril 10mg po tid
[2016-09-01 10:35] LABS: ALBUMIN 3.5 g/dl (3.4-5.0); ALK PHOS 77 U/L (45-117); ANION GAP 7 (8-16); BILIRUBIN,TOTAL 0.6 mg/dL (0.2-1.0); CALCIUM 9.6 mg/dL (8.5-10.1); CO2 30 mmol/L (21-32); COCKROFT - GAULT 141.95; CREATININE 0.7 mg/dL (0.55-1.02); GLUCOSE,RANDOM 87 mg/dL (74-106); SGOT/AST 19 U/L (15-37); SGPT/ALT 22 U/L (12-78); TOT PROT 7.3 g/dl (6.4-8.2)
[2016-09-01] MEDS: PRENATAL VITAMINS W/ FOLIC ACID TABLET (FP) PO SCH (11:00)
[2016-09-01] MEDS: NICOTINE 14 MG/24 HOURS TOPICAL PATCH TD SCH (11:01)
[2016-09-01] MEDS: METHADONE HCL 5 MG TABLET (FOR DETOX USE ONLY) PO SCH (11:01)
[2016-09-01] MEDS ORDERED: CYCLOBENZAPRINE HCL 10 MG TABLET (FP) PO PRN (11:09)
--- NOTE | 2016-09-01 11:46 | PN ---
[facility] CIWA - CIWA Score Nausea/Vomitin-No Nausea/No Vomiting Muscle Tremors: 3 Anxiety: 3 Agitation: 3 Paroxysmal Sweats: 3 Orientation: 0-Oriented Tacttile Disturbances: 0-None Auditory Disturbances: 0-None Visual Disturbances: 0-None Headache: 0-None Present CIWA-Ar Total Score: 12 S COWS - Scale Resting Pulse: 1= [place] 81-100 Sweatin= Chills/Flushing Restless Observation: 0= Sits Still Pupil Size: 0= Normal to Room Light Bone or Joint Aches: 2= Severe Diffuse Aches Runny Nose/ Eye Tearin= Nasal Congestion GI Upset > 30mins: 0= None Tremor Observation of Outstretched Hands: 2= Slight Tremor Visible Yawning Observation: 2= >3x During Session Anxiety or Irritability: 2=Irritable/Anxious Goose Flesh Skin: 0=Smooth Skin COWS Score: 11 S Progress Note (SOAP) Subjective: sweats shakes interrupted sleep agitation nasal congestion Objective: 09/01/16 11:45 Vital Signs Temperature 99.0 F 09/01/16 09:42 Pulse Rate 88 09/01/16 09:42 Respiratory Rate 16 09/01/16 09:42 Blood Pressure 143/96 09/01/16 09:42 O2 Sat by Pulse Oximetry (%) Laboratory Tests 08/31/16 09/01/16 09/01/16 19:00 07:00 07:00 WBC 6.0 RBC 4.75 Hgb 13.5 Hct 39.6 MCV 83.2 MCHC 34.1 RDW 14.9 Plt Count 162 D MPV 11.6 H Sodium 138 Potassium 5.1 Chloride 101 Carbon Dioxide 30 Anion Gap 7 L BUN 14 Creatinine 0.7 Creat Clearance w eGFR > 60 Random Glucose 87 Calcium 9.6 Total Bilirubin 0.6 AST 19 ALT 22 D Alkaline Phosphatase 77 Total Protein 7.3 Albumin 3.5 Urine Color Ltyellow Urine Appearance Clear Urine pH 8.0 Ur Specific [place] 1.013 Urine Protein Negative Urine Glucose (UA) Negative Urine Ketones Negative Urine Blood Negative Urine Nitrite Negative Urine Bilirubin Negative Urine Urobilinogen Negative Ur Leukocyte Esterase Trace H D Urine RBC <1 Urine WBC <1 Ur Epithelial Cells Rare Urine Bacteria Rare Urine Mucus Rare RPR Titer 09/01/16 07:00 WBC RBC Hgb Hct MCV MCHC RDW Plt Count MPV Sodium Potassium Chloride Carbon Dioxide Anion Gap BUN Creatinine Creat Clearance w eGFR Random Glucose Calcium Total Bilirubin AST ALT Alkaline Phosphatase Total Protein Albumin Urine Color Urine Appearance Urine pH Ur Specific [place] Urine Protein Urine Glucose (UA) Urine Ketones Urine Blood Urine Nitrite Urine Bilirubin Urine Urobilinogen Ur Leukocyte Esterase Urine RBC Urine WBC Ur Epithelial Cells Urine Bacteria Urine Mucus RPR Titer Nonreactive awake/alert ambulating no acute distress Assessment: 09/01/16 11:45 withdrawal sx Plan: continue detox increase fluids
[2016-09-01] MEDS: QUEtiapine FUMARATE 25 MG TABLET (FP) PO SCH (12:41)
[2016-09-01] MEDS: chlordiazePOXIDE 5 MG CAPSULE PO SCH ×2 (17:20→22:11)
[2016-09-01] MEDS: QUEtiapine FUMARATE 100 MG TABLET (FP) PO SCH (22:11)
[2016-09-01] MEDS: diphenhydrAMINE HCL 50 MG CAPSULE PO PRN (22:12)
[2016-09-01] MEDS: THIAMINE HCL 100 MG TABLET (FP) PO SCH (23:15)
[2016-09-02] MEDS: chlordiazePOXIDE 5 MG CAPSULE PO SCH ×2 (06:35→10:43)
[2016-09-02] MEDS: CYCLOBENZAPRINE HCL 10 MG TABLET (FP) PO SCH ×3 (06:35→23:22)
[2016-09-02] MEDS: PRENATAL VITAMINS W/ FOLIC ACID TABLET (FP) PO SCH (10:42)
[2016-09-02] MEDS: QUEtiapine FUMARATE 25 MG TABLET (FP) PO SCH (10:43)
[2016-09-02] MEDS: METHADONE HCL 5 MG TABLET (FOR DETOX USE ONLY) PO SCH (10:43)
[2016-09-02] MEDS: NICOTINE 14 MG/24 HOURS TOPICAL PATCH TD SCH (10:45)
--- NOTE | 2016-09-02 11:09 | PN ---
BHS Progress Note (SOAP) Subjective: sweats, shakes dry skin Objective: 09/02/16 11:08 Vital Signs Temperature 98.2 F 09/02/16 09:55 Pulse Rate 87 09/02/16 09:55 Respiratory Rate 20 09/02/16 09:55 Blood Pressure 106/59 09/02/16 09:55 O2 Sat by Pulse Oximetry (%) Laboratory Tests 08/31/16 09/01/16 09/01/16 19:00 07:00 07:00 WBC 6.0 RBC 4.75 Hgb 13.5 Hct 39.6 MCV 83.2 MCHC 34.1 RDW 14.9 Plt Count 162 D MPV 11.6 H Sodium 138 Potassium 5.1 Chloride 101 Carbon Dioxide 30 Anion Gap 7 L BUN 14 Creatinine 0.7 Creat Clearance w eGFR > 60 Random Glucose 87 Calcium 9.6 Total Bilirubin 0.6 AST 19 ALT 22 D Alkaline Phosphatase 77 Total Protein 7.3 Albumin 3.5 Urine Color Ltyellow Urine Appearance Clear Urine pH 8.0 Ur Specific [place] 1.013 Urine Protein Negative Urine Glucose (UA) Negative Urine Ketones Negative Urine Blood Negative Urine Nitrite Negative Urine Bilirubin Negative Urine Urobilinogen Negative Ur Leukocyte Esterase Trace H D Urine RBC <1 Urine WBC <1 Ur Epithelial Cells Rare Urine Bacteria Rare Urine Mucus Rare RPR Titer 09/01/16 07:00 WBC RBC Hgb Hct MCV MCHC RDW Plt Count MPV Sodium Potassium Chloride Carbon Dioxide Anion Gap BUN Creatinine Creat Clearance w eGFR Random Glucose Calcium Total Bilirubin AST ALT Alkaline Phosphatase Total Protein Albumin Urine Color Urine Appearance Urine pH Ur Specific [place] Urine Protein Urine Glucose (UA) Urine Ketones Urine Blood Urine Nitrite Urine Bilirubin Urine Urobilinogen Ur Leukocyte Esterase Urine RBC Urine WBC Ur Epithelial Cells Urine Bacteria Urine Mucus RPR Titer Nonreactive pt aox3 in nad ambulating Assessment: 09/02/16 11:08 withdrawal sx's dry skin Plan: cont. detox increase fluids lachydrin lotion
[2016-09-02] MEDS ORDERED: AMMONIUM LACTATE 12% LOTION 225 GM BOTTLE TP PRN (11:11)
[2016-09-02] MEDS: chlordiazePOXIDE HCL 25 MG CAPSULE PO PRN (13:48)
[2016-09-02] MEDS: chlordiazePOXIDE HCL 10 MG CAPSULE PO SCH ×2 (17:18→23:21)
[2016-09-02] MEDS: THIAMINE HCL 100 MG TABLET (FP) PO SCH (23:21)
[2016-09-02] MEDS: QUEtiapine FUMARATE 100 MG TABLET (FP) PO SCH (23:22)
[2016-09-03] MEDS: CYCLOBENZAPRINE HCL 10 MG TABLET (FP) PO SCH ×3 (07:15→22:26)
[2016-09-03] MEDS: chlordiazePOXIDE HCL 10 MG CAPSULE PO SCH ×2 (07:16→10:44)
[2016-09-03] MEDS ORDERED: METHADONE HCL 10 MG TABLET (FOR DETOX USE ONLY) PO SCH (10:00)
[2016-09-03] MEDS: PRENATAL VITAMINS W/ FOLIC ACID TABLET (FP) PO SCH (10:44)
[2016-09-03] MEDS: NICOTINE 14 MG/24 HOURS TOPICAL PATCH TD SCH (10:44)
[2016-09-03] MEDS: QUEtiapine FUMARATE 25 MG TABLET (FP) PO SCH (10:44)
--- NOTE | 2016-09-03 11:32 | PN ---
BHS Progress Note (SOAP) Subjective: sweats chills Objective: 09/03/16 11:31 Vital Signs Temperature 98.1 F 09/03/16 10:44 Pulse Rate 100 H 09/03/16 10:44 Respiratory Rate 20 09/03/16 10:44 Blood Pressure 102/59 09/03/16 10:44 O2 Sat by Pulse Oximetry (%) awake/alert ambulating no acute distress Assessment: 09/03/16 11:31 withdrawal sx Plan: continue detox increase fluids d/c in am
[2016-09-03] MEDS: hydrOXYzine PAMOATE 50 MG CAPSULE (FP) PO PRN ×2 (17:45→22:26)
[2016-09-03] MEDS: QUEtiapine FUMARATE 100 MG TABLET (FP) PO SCH (22:26)
[2016-09-03] MEDS: THIAMINE HCL 100 MG TABLET (FP) PO SCH (22:26)
[2016-09-04] MEDS: CYCLOBENZAPRINE HCL 10 MG TABLET (FP) PO SCH (05:06)
[2016-09-04] MEDS ORDERED: METHADONE HCL 5 MG TABLET (FOR DETOX USE ONLY) PO SCH (06:00)
[2016-09-04] MEDS: PRENATAL VITAMINS W/ FOLIC ACID TABLET (FP) PO SCH (09:32)
[2016-09-04] MEDS: QUEtiapine FUMARATE 25 MG TABLET (FP) PO SCH (09:33)
[2016-09-04 10:01] VITALS: BP 109/51; PULSE 96; TEMP 98.2
--- NOTE | 2016-09-04 10:21 | DS ---
[facility] Detox Discharge Summary Admission Date: 08/30/16 Discharge Date: 09/04/16 - History Present History: Opioid Dependence, Sedative Dependence - Physical Exam Results Vital Signs: Vital Signs Temperature 98.2 F 09/04/16 10:01 Pulse Rate 96 H 09/04/16 10:01 Respiratory Rate 18 09/04/16 10:01 Blood Pressure 109/51 09/04/16 10:01 O2 Sat by Pulse Oximetry (%) - Treatment Hospital Course: Detox Protocol Followed, Detoxed Safely, Responded well, Discharged Condition Good - Medication Discharge Medications: Ambulatory Orders Cyclobenzaprine HCl [Flexeril -] 10 mg PO TID 04/18/16 Quetiapine Fumarate [Seroquel] 100 tab PO HS #30 tablet 04/21/16 Quetiapine Fumarate [Seroquel] 100 mg PO HS #30 tablet 08/02/16 Quetiapine Fumarate [Seroquel -] 25 mg PO DAILY #30 tablet 09/01/16 Quetiapine Fumarate [Seroquel] 100 mg PO HS #30 tablet 09/01/16 - Diagnosis (1) Dry skin dermatitis Current Visit: Yes Status: Chronic (2) Nicotine dependence Current Visit: Yes Status: Chronic Qualifiers: Nicotine product type: cigarettes Substance use status: uncomplicated Qualified Code(s): F17.210 - Nicotine dependence, cigarettes, uncomplicated (3) Opioid dependence with withdrawal Current Visit: Yes Status: Chronic (4) Sedative, hypnotic or anxiolytic dependence with withdrawal, uncomplicated Current Visit: Yes Status: Chronic (5) Chronic back pain Current Visit: Yes Status: Chronic Qualifiers: Back pain location: low back pain Back pain laterality: bilateral Sciatica presence: without sciatica Qualified Code(s): M54.5 - Low back pain; G89.29 - Other chronic pain (6) Depressive disorder Current Visit: Yes Status: Suspected (7) Alcohol dependence with uncomplicated withdrawal Current Visit: Yes Status: Chronic - AMA Did Patient Leave Against Medical Advice: No
== END 2016-09-04 10:05 | disposition home or self-care (01) | DRG 773 ==
LOC: YASAS 12:23 → Y6N 17:05
PROVIDERS: ADMIT Internal Medicine; ATTEND Internal Medicine Addiction Medicine
PROC: HZ2ZZZZ Detoxification Services for Substance Abuse Treatment (ICD-10-PCS; principal; 2016-08-30)
DX: F11.23 Opioid dependence with withdrawal (principal); F13.230 Sedative, hypnotic or anxiolytic dependence with withdrawal, uncomplicated; F10.230 Alcohol dependence with withdrawal, uncomplicated; F17.210 Nicotine dependence, cigarettes, uncomplicated; F32.9 Major depressive disorder, single episode, unspecified; F19.24 Other psychoactive substance dependence with psychoactive substance-induced mood disorder; L85.3 Xerosis cutis; M54.5 Low back pain; G89.29 Other chronic pain; Z87.898 Personal history of other specified conditions; Z86.2 Personal history of diseases of the blood and blood-forming organs and certain disorders involving the immune mechanism; Z86.73 Personal history of transient ischemic attack (TIA), and cerebral infarction without residual deficits
CPT/HCPCS: 36415; 80053; 81003; 81015; 85027; 86593; 93005; 93010

== ENCOUNTER 2022-03-24 13:39 | Inpatient (IN) | payer OTHER ==
[2022-03-24 15:51] VITALS: BMI 24.5
[2022-03-24] MEDS ORDERED: NALOXONE HCL 0.4 MG/ML VIAL IM PRN (18:04)
[2022-03-24] MEDS ORDERED: guaiFENesin 200 MG/10 ML 10 ML UNIT-DOSE CUPS PO PRN (18:04)
[2022-03-24] MEDS ORDERED: LOPERAMIDE HCL 2 MG CAPSULE PO PRN (18:04)
[2022-03-24] MEDS ORDERED: NICOTINE POLACRILEX 2 MG GUM BUC PRN (18:04)
[2022-03-24] MEDS ORDERED: BISMUTH SUBSALICYLATE 524 MG/30 ML PO PRN (18:04)
[2022-03-24] MEDS ORDERED: ACETAMINOPHEN 325 MG TABLET (FP) PO PRN ×2 (18:04)
[2022-03-24] MEDS ORDERED: ONDANSETRON *ODT* 4 MG TABLET SL PRN (18:04)
[2022-03-24] MEDS ORDERED: BENZOCAINE/MENTHOL (CHLORASEPTIC ) LOZENGE MM PRN (18:04)
[2022-03-24] MEDS ORDERED: DICYCLOMINE HCL 10 MG CAPSULE PO PRN (18:04)
[2022-03-24] MEDS ORDERED: MAG HYDROX/AL HYDROX/SIMETH 30 ML UNIT-DOSE CUP PO PRN (18:04)
[2022-03-24] MEDS ORDERED: METHOCARBAMOL 500 MG TABLET PO PRN (18:04)
[2022-03-24] MEDS ORDERED: IBUPROFEN 600 MG TABLET (FP) PO PRN (18:04)
[2022-03-24] MEDS ORDERED: P-EPHED 60MG/TRIPROLIDI 2.5MG TABLET PO PRN (18:04)
[2022-03-24] MEDS ORDERED: NALOXONE HCL (KLOXXADO) 8 MG SPRAY NS PRN (18:04)
[2022-03-24] MEDS ORDERED: IBUPROFEN 400 MG TABLET (FP) PO PRN (18:04)
[2022-03-24] MEDS ORDERED: MAGNESIUM HYDROX 2400MG/30ML ORAL SUSPENSION 30 ML CUP PO PRN (18:04)
[2022-03-24] MEDS ORDERED: methaDONE HCL 10 MG TABLET (FOR DETOX USE ONLY) PO ONE ×2 (18:08→19:45)
[2022-03-24] MEDS ORDERED: cloNIDine HCL 0.1 MG TABLET PO PRN (18:08)
[2022-03-24] MEDS: THIAMINE HCL 100 MG TABLET (FP) PO SCH (22:09)
[2022-03-24] MEDS: DOCUSATE SODIUM 100 MG CAPSULE (FP) PO SCH (22:09)
[2022-03-24] MEDS: SULFAMETHOXAZOLE/TRIMETHOPRIM 800MG/160MG D.S. TABLET PO SCH (22:10)
[2022-03-24] MEDS: diazePAM 5 MG TABLET PO PRN (22:11)
[2022-03-24] MEDS: BACITRACIN 0.9 GM PACKET TP SCH (22:14)
[2022-03-24] MEDS: CYCLOBENZAPRINE HCL 10 MG TABLET (FP) PO PRN (22:28)
[2022-03-25] MEDS: DOCUSATE SODIUM 100 MG CAPSULE (FP) PO SCH ×3 (06:12→22:19)
[2022-03-25] MEDS: diazePAM 5 MG TABLET PO PRN ×4 (06:13→22:19)
[2022-03-25] MEDS: PRENATAL VITAMINS W/ FOLIC ACID TABLET (FP) PO SCH (10:06)
[2022-03-25] MEDS: NICOTINE 7 MG/24 HOURS TOPICAL PATCH TD SCH (10:07)
[2022-03-25] MEDS: SULFAMETHOXAZOLE/TRIMETHOPRIM 800MG/160MG D.S. TABLET PO SCH ×2 (10:08→22:19)
[2022-03-25] MEDS: BACITRACIN 0.9 GM PACKET TP SCH ×3 (10:12→22:22)
[2022-03-25] MEDS ORDERED: NICOTINE 10 MG CARTRIDGE (INHALER) IH PRN (11:38)
[2022-03-25] MEDS: ESCITALOPRAM OXALATE 20 MG TABLET PO SCH (11:47)
[2022-03-25] MEDS ORDERED: DOCUSATE SODIUM 100 MG CAPSULE (FP) PO SCH (14:00)
[2022-03-25] MEDS: SUVOREXANT 10 MG TABLET PO PRN (22:18)
[2022-03-25] MEDS: THIAMINE HCL 100 MG TABLET (FP) PO SCH (22:19)
[2022-03-26] MEDS: DOCUSATE SODIUM 100 MG CAPSULE (FP) PO SCH ×3 (05:18→22:08)
[2022-03-26] MEDS ORDERED: methaDONE HCL 10 MG TABLET (FOR DETOX USE ONLY) PO ONE (10:00)
[2022-03-26] MEDS: SULFAMETHOXAZOLE/TRIMETHOPRIM 800MG/160MG D.S. TABLET PO SCH ×2 (10:08→22:08)
[2022-03-26] MEDS: ESCITALOPRAM OXALATE 20 MG TABLET PO SCH (10:08)
[2022-03-26] MEDS: PRENATAL VITAMINS W/ FOLIC ACID TABLET (FP) PO SCH (10:08)
[2022-03-26] MEDS: diazePAM 5 MG TABLET PO PRN ×3 (10:09→22:07)
[2022-03-26] MEDS: NICOTINE 7 MG/24 HOURS TOPICAL PATCH TD SCH (10:10)
[2022-03-26] MEDS: BACITRACIN 0.9 GM PACKET TP SCH ×2 (11:07→22:08)
[2022-03-26 11:11] LABS: HEMATOCRIT 35.6 % (32.4-45.2); HEMOGLOBIN 11.9 GM/dL (10.7-15.3); MCH 25.6 pg (25.7-33.7); MCHC 33.4 g/dl (32.0-36.0); MEAN CELL VOLUME 76.6 fl (80-96); MEAN PLT VOLUME 11.6 fl (7.5-11.1); PLATELET COUNT 122 10^3/uL (134-434); RBC 4.65 M/mm3 (3.60-5.2); RDW 17.3 % (11.6-15.6); WHITE BLOOD COUNT 4.7 K/mm3 (4.0-10.0)
[2022-03-26] MEDS: CYCLOBENZAPRINE HCL 10 MG TABLET (FP) PO PRN (11:20)
[2022-03-26 11:46] LABS: ALBUMIN 3.4 g/dl (3.4-5.0); BLOOD UREA NITROGEN 13.1 mg/dL (7-18); CALCIUM 9.9 mg/dL (8.5-10.1)
[2022-03-26 11:49] LABS: CREATININE 0.7 mg/dL (0.55-1.3)
[2022-03-26 11:50] LABS: TOT PROT 7.4 g/dl (6.4-8.2)
[2022-03-26 11:51] LABS: BILIRUBIN,TOTAL 0.3 mg/dL (0.2-1)
[2022-03-26] MEDS: hydrOXYzine PAMOATE 25 MG CAPSULE (FP) PO PRN ×2 (17:28→22:07)
[2022-03-26] MEDS: THIAMINE HCL 100 MG TABLET (FP) PO SCH (22:08)
[2022-03-26] MEDS: SUVOREXANT 10 MG TABLET PO PRN (22:09)
[2022-03-27] MEDS: DOCUSATE SODIUM 100 MG CAPSULE (FP) PO SCH ×3 (07:08→22:52)
[2022-03-27] MEDS: ESCITALOPRAM OXALATE 20 MG TABLET PO SCH (10:14)
[2022-03-27] MEDS: SULFAMETHOXAZOLE/TRIMETHOPRIM 800MG/160MG D.S. TABLET PO SCH ×2 (10:14→22:52)
[2022-03-27] MEDS: PRENATAL VITAMINS W/ FOLIC ACID TABLET (FP) PO SCH (10:14)
[2022-03-27] MEDS: NICOTINE 7 MG/24 HOURS TOPICAL PATCH TD SCH (10:15)
[2022-03-27] MEDS: CYCLOBENZAPRINE HCL 10 MG TABLET (FP) PO PRN (10:17)
[2022-03-27] MEDS: BACITRACIN 0.9 GM PACKET TP SCH ×2 (10:19→22:44)
[2022-03-27] MEDS: diazePAM 5 MG TABLET PO PRN ×3 (11:02→17:36)
[2022-03-27] MEDS: TOLNAFTATE 1% CREAM 15 GM TUBE TP SCH (22:44)
[2022-03-27] MEDS: SUVOREXANT 10 MG TABLET PO PRN (22:51)
[2022-03-27] MEDS: THIAMINE HCL 100 MG TABLET (FP) PO SCH (22:52)
[2022-03-27] MEDS: hydrOXYzine PAMOATE 25 MG CAPSULE (FP) PO PRN (22:53)
[2022-03-28] MEDS: DOCUSATE SODIUM 100 MG CAPSULE (FP) PO SCH ×3 (05:52→22:30)
[2022-03-28] MEDS ORDERED: methaDONE HCL 10 MG TABLET (FOR DETOX USE ONLY) PO ONE (10:00)
[2022-03-28] MEDS: BACITRACIN 0.9 GM PACKET TP SCH ×2 (10:09→22:30)
[2022-03-28] MEDS: PRENATAL VITAMINS W/ FOLIC ACID TABLET (FP) PO SCH (10:15)
[2022-03-28] MEDS: NICOTINE 7 MG/24 HOURS TOPICAL PATCH TD SCH (10:15)
[2022-03-28] MEDS: TOLNAFTATE 1% CREAM 15 GM TUBE TP SCH ×2 (10:15→22:30)
[2022-03-28] MEDS: SULFAMETHOXAZOLE/TRIMETHOPRIM 800MG/160MG D.S. TABLET PO SCH ×2 (10:16→22:30)
[2022-03-28] MEDS: ESCITALOPRAM OXALATE 20 MG TABLET PO SCH (10:16)
[2022-03-28] MEDS: diazePAM 5 MG TABLET PO PRN ×4 (10:17→22:31)
[2022-03-28] MEDS: hydrOXYzine PAMOATE 25 MG CAPSULE (FP) PO PRN (18:06)
[2022-03-28] MEDS: THIAMINE HCL 100 MG TABLET (FP) PO SCH (22:29)
[2022-03-29] MEDS: DOCUSATE SODIUM 100 MG CAPSULE (FP) PO SCH (05:12)
[2022-03-29 06:20] VITALS: RESP 17
[2022-03-29 09:20] VITALS: BP 117/72; PULSE 85; TEMP 97.5
[2022-03-29] MEDS: SULFAMETHOXAZOLE/TRIMETHOPRIM 800MG/160MG D.S. TABLET PO SCH (09:46)
[2022-03-29] MEDS: ESCITALOPRAM OXALATE 20 MG TABLET PO SCH (09:46)
== END 2022-03-29 10:29 | disposition home or self-care (01) | DRG 773 ==
LOC: YASAS 13:39 → Y6N 18:10
PROVIDERS: ADMIT Allergy & Immunology; ATTEND Surgery
PROC: HZ2ZZZZ Detoxification Services for Substance Abuse Treatment (ICD-10-PCS; principal; 2022-03-24)
DX: F11.23 Opioid dependence with withdrawal (principal); F10.230 Alcohol dependence with withdrawal, uncomplicated; F14.20 Cocaine dependence, uncomplicated; F17.210 Nicotine dependence, cigarettes, uncomplicated; B18.2 Chronic viral hepatitis C; B35.3 Tinea pedis; M54.50 Low back pain, unspecified; G89.29 Other chronic pain; Z86.73 Personal history of transient ischemic attack (TIA), and cerebral infarction without residual deficits; Z86.718 Personal history of other venous thrombosis and embolism; Z86.2 Personal history of diseases of the blood and blood-forming organs and certain disorders involving the immune mechanism; Z88.8 Allergy status to other drugs, medicaments and biological substances
CPT/HCPCS: 36415; 80053; 81025; 85027; 86780; C9803-CS; U0003; U0005

== ENCOUNTER 2022-05-19 12:23 | Inpatient (IN) | payer OTHER ==
[2022-05-19 13:12] VITALS: BMI 23.5
[2022-05-19] MEDS ORDERED: NICOTINE 10 MG CARTRIDGE (INHALER) IH PRN ×2 (16:43→16:51)
[2022-05-19] MEDS ORDERED: IBUPROFEN 400 MG TABLET (FP) PO PRN ×2 (16:43→16:51)
[2022-05-19] MEDS ORDERED: ACETAMINOPHEN 325 MG TABLET (FP) PO PRN ×3 (16:43→16:51)
[2022-05-19] MEDS ORDERED: LOPERAMIDE HCL 2 MG CAPSULE PO PRN ×2 (16:43→16:51)
[2022-05-19] MEDS ORDERED: BENZOCAINE/MENTHOL (CHLORASEPTIC ) LOZENGE MM PRN ×2 (16:43→16:51)
[2022-05-19] MEDS ORDERED: MAG HYDROX/AL HYDROX/SIMETH 30 ML UNIT-DOSE CUP PO PRN ×2 (16:43→16:51)
[2022-05-19] MEDS ORDERED: hydrOXYzine PAMOATE 25 MG CAPSULE (FP) PO PRN (16:43)
[2022-05-19] MEDS ORDERED: POLYETHYLENE GLYCOL (HEALTHYLAX) 3350 17 GM PACKET PO PRN ×2 (16:43→16:51)
[2022-05-19] MEDS ORDERED: MAGNESIUM HYDROX 2400MG/30ML ORAL SUSPENSION 30 ML CUP PO PRN ×2 (16:43→16:51)
[2022-05-19] MEDS ORDERED: P-EPHED 60MG/TRIPROLIDI 2.5MG TABLET PO PRN (16:43)
[2022-05-19] MEDS ORDERED: guaiFENesin 200 MG/10 ML 10 ML UNIT-DOSE CUPS PO PRN (16:43)
[2022-05-19] MEDS ORDERED: DICYCLOMINE HCL 10 MG CAPSULE PO PRN (16:51)
[2022-05-19] MEDS ORDERED: IBUPROFEN 600 MG TABLET (FP) PO PRN (16:51)
[2022-05-19] MEDS ORDERED: BISMUTH SUBSALICYLATE 524 MG/30 ML PO PRN (16:51)
[2022-05-19] MEDS ORDERED: ONDANSETRON *ODT* 4 MG TABLET SL PRN (16:51)
[2022-05-19] MEDS ORDERED: NALOXONE HCL (KLOXXADO) 8 MG SPRAY NS PRN (16:51)
[2022-05-19] MEDS ORDERED: cloNIDine HCL 0.1 MG TABLET PO PRN (16:56)
[2022-05-19] MEDS ORDERED: methaDONE HCL 10 MG TABLET (FOR DETOX USE ONLY) PO ONE (18:00)
[2022-05-19] MEDS: diazePAM 5 MG TABLET PO SCH ×2 (18:05→22:53)
[2022-05-19] MEDS: NICOTINE 7 MG/24 HOURS TOPICAL PATCH TD SCH (19:07)
[2022-05-19] MEDS ORDERED: THIAMINE HCL 100 MG TABLET (FP) PO SCH (22:00)
[2022-05-19] MEDS ORDERED: MELATONIN 5 MG TABLETS PO SCH ×2 (22:00)
[2022-05-19] MEDS: THIAMINE HCL 100 MG TABLET (FP) PO SCH (22:52)
[2022-05-19] MEDS: DOCUSATE SODIUM 100 MG CAPSULE (FP) PO SCH (22:53)
[2022-05-19] MEDS: AMOXICILLIN 500 MG CAPSULE (FP) PO SCH (22:53)
[2022-05-19] MEDS: CYCLOBENZAPRINE HCL 10 MG TABLET (FP) PO SCH (22:54)
[2022-05-20] MEDS: DOCUSATE SODIUM 100 MG CAPSULE (FP) PO SCH ×3 (06:00→22:52)
[2022-05-20] MEDS: AMOXICILLIN 500 MG CAPSULE (FP) PO SCH ×3 (06:01→22:52)
[2022-05-20] MEDS: diazePAM 5 MG TABLET PO SCH ×4 (06:07→22:53)
[2022-05-20] MEDS: CYCLOBENZAPRINE HCL 10 MG TABLET (FP) PO SCH ×3 (06:12→22:55)
[2022-05-20] MEDS ORDERED: NICOTINE 7 MG/24 HOURS TOPICAL PATCH TD SCH (10:00)
[2022-05-20] MEDS ORDERED: PRENATAL VITAMINS W/ FOLIC ACID TABLET (FP) PO SCH (10:00)
[2022-05-20] MEDS: PRENATAL VITAMINS W/ FOLIC ACID TABLET (FP) PO SCH (10:29)
[2022-05-20] MEDS: NICOTINE 7 MG/24 HOURS TOPICAL PATCH TD SCH (10:29)
[2022-05-20 11:02] LABS: HEMATOCRIT 34.3 % (32.4-45.2); HEMOGLOBIN 11.4 GM/dL (10.7-15.3); MCH 25.9 pg (25.7-33.7); MCHC 33.1 g/dl (32.0-36.0); MEAN CELL VOLUME 78.2 fl (80-96); MEAN PLT VOLUME 11.7 fl (7.5-11.1); PLATELET COUNT 68 10^3/uL (134-434); RBC 4.39 M/mm3 (3.60-5.2); WHITE BLOOD COUNT 2.6 K/mm3 (4.0-10.0)
[2022-05-20 11:08] LABS: CALCIUM 8.7 mg/dL (8.5-10.1)
[2022-05-20 11:09] LABS: ALBUMIN 2.9 g/dl (3.4-5.0)
[2022-05-20 11:10] LABS: BLOOD UREA NITROGEN 11.2 mg/dL (7-18)
[2022-05-20 11:13] LABS: CREATININE 0.6 mg/dL (0.55-1.3); TOT PROT 6.4 g/dl (6.4-8.2)
[2022-05-20 11:14] LABS: BILIRUBIN,TOTAL 0.4 mg/dL (0.2-1)
[2022-05-20 13:39] LABS: EPI CELLS >36 /uL (0-25.1); HYALINE CASTS 28 /uL (0-3.1); URINE APPEARANCE CLOUDY; URINE BACTERIA >9,000 /uL (0-1359); URINE BILIRUBIN 1+ (NEGATIVE); URINE COLOR DK YELLOW; URINE GLUCOSE (UA) NEGATIVE (NEGATIVE); URINE KETONE TRACE (NEGATIVE); URINE LEUK ESTERASE 1+ (NEGATIVE); URINE NITRITE POSITIVE (NEGATIVE); URINE PROTEIN 1+ (NEGATIVE); URINE RBC 19 /uL (0-23.9); URINE WBC 81 /uL (0-25.8)
[2022-05-20] MEDS: THIAMINE HCL 100 MG TABLET (FP) PO SCH (22:52)
[2022-05-21] MEDS: CYCLOBENZAPRINE HCL 10 MG TABLET (FP) PO SCH ×3 (05:55→22:20)
[2022-05-21] MEDS: AMOXICILLIN 500 MG CAPSULE (FP) PO SCH ×3 (05:55→22:20)
[2022-05-21] MEDS: diazePAM 5 MG TABLET PO SCH ×3 (05:55→22:20)
[2022-05-21] MEDS: DOCUSATE SODIUM 100 MG CAPSULE (FP) PO SCH ×3 (05:55→22:20)
[2022-05-21] MEDS ORDERED: methaDONE HCL 10 MG TABLET (FOR DETOX USE ONLY) PO ONE (10:00)
[2022-05-21] MEDS: diazePAM 5 MG TABLET PO PRN ×2 (10:32→18:02)
[2022-05-21] MEDS: NICOTINE 7 MG/24 HOURS TOPICAL PATCH TD SCH (10:33)
[2022-05-21] MEDS: PRENATAL VITAMINS W/ FOLIC ACID TABLET (FP) PO SCH (10:33)
[2022-05-21] MEDS: LACTULOSE 20 GM/30 ML UDC (FOR ORAL USE ONLY) PO SCH ×4 (10:33→22:21)
[2022-05-21] MEDS: NITROFURANTOIN MACROCRYSTAL 50 MG CAPSULE (FP) PO SCH ×3 (11:06→22:22)
[2022-05-21] MEDS: METHOCARBAMOL 500 MG TABLET PO PRN (18:01)
[2022-05-21] MEDS: THIAMINE HCL 100 MG TABLET (FP) PO SCH (22:19)
[2022-05-21] MEDS: SUVOREXANT 10 MG TABLET PO PRN (22:24)
[2022-05-22] MEDS: AMOXICILLIN 500 MG CAPSULE (FP) PO SCH ×3 (06:11→22:23)
[2022-05-22] MEDS: DOCUSATE SODIUM 100 MG CAPSULE (FP) PO SCH ×3 (06:11→22:23)
[2022-05-22] MEDS: CYCLOBENZAPRINE HCL 10 MG TABLET (FP) PO SCH ×3 (06:11→22:23)
[2022-05-22] MEDS: NITROFURANTOIN MACROCRYSTAL 50 MG CAPSULE (FP) PO SCH ×4 (06:11→22:16)
[2022-05-22] MEDS: diazePAM 5 MG TABLET PO SCH ×2 (06:18→18:48)
[2022-05-22] MEDS: LACTULOSE 20 GM/30 ML UDC (FOR ORAL USE ONLY) PO SCH ×4 (09:35→22:23)
[2022-05-22] MEDS: METHOCARBAMOL 500 MG TABLET PO PRN ×2 (09:36→18:46)
[2022-05-22] MEDS: PRENATAL VITAMINS W/ FOLIC ACID TABLET (FP) PO SCH (09:36)
[2022-05-22] MEDS: hydrOXYzine PAMOATE 25 MG CAPSULE (FP) PO PRN ×2 (09:36→18:46)
[2022-05-22] MEDS: NICOTINE 7 MG/24 HOURS TOPICAL PATCH TD SCH (09:37)
[2022-05-22] MEDS: diazePAM 5 MG TABLET PO PRN (13:17)
[2022-05-22] MEDS: THIAMINE HCL 100 MG TABLET (FP) PO SCH (22:24)
[2022-05-22] MEDS: SUVOREXANT 10 MG TABLET PO PRN (22:27)
[2022-05-23] MEDS ORDERED: diazePAM 5 MG TABLET PO ONE (06:00)
[2022-05-23] MEDS: NITROFURANTOIN MACROCRYSTAL 50 MG CAPSULE (FP) PO SCH ×4 (06:07→22:34)
[2022-05-23] MEDS: DOCUSATE SODIUM 100 MG CAPSULE (FP) PO SCH ×3 (06:07→22:33)
[2022-05-23] MEDS: AMOXICILLIN 500 MG CAPSULE (FP) PO SCH ×3 (06:07→22:33)
[2022-05-23] MEDS: CYCLOBENZAPRINE HCL 10 MG TABLET (FP) PO SCH ×3 (06:07→22:33)
[2022-05-23] MEDS ORDERED: methaDONE HCL 10 MG TABLET (FOR DETOX USE ONLY) PO ONE (10:00)
[2022-05-23] MEDS: LACTULOSE 20 GM/30 ML UDC (FOR ORAL USE ONLY) PO SCH ×5 (10:30→22:37)
[2022-05-23] MEDS: PRENATAL VITAMINS W/ FOLIC ACID TABLET (FP) PO SCH (10:31)
[2022-05-23] MEDS: NICOTINE 7 MG/24 HOURS TOPICAL PATCH TD SCH (10:31)
[2022-05-23] MEDS: hydrOXYzine PAMOATE 25 MG CAPSULE (FP) PO PRN (17:44)
[2022-05-23] MEDS: METHOCARBAMOL 500 MG TABLET PO PRN (17:44)
[2022-05-23] MEDS: THIAMINE HCL 100 MG TABLET (FP) PO SCH (22:34)
[2022-05-24] MEDS: AMOXICILLIN 500 MG CAPSULE (FP) PO SCH (06:17)
[2022-05-24] MEDS: DOCUSATE SODIUM 100 MG CAPSULE (FP) PO SCH (06:17)
[2022-05-24] MEDS: CYCLOBENZAPRINE HCL 10 MG TABLET (FP) PO SCH (06:17)
[2022-05-24] MEDS: NITROFURANTOIN MACROCRYSTAL 50 MG CAPSULE (FP) PO SCH ×2 (06:18→11:30)
[2022-05-24 09:57] VITALS: BP 104/71; PULSE 100; RESP 18; TEMP 96.8
[2022-05-24] MEDS: LACTULOSE 20 GM/30 ML UDC (FOR ORAL USE ONLY) PO SCH (11:29)
[2022-05-24] MEDS: NICOTINE 7 MG/24 HOURS TOPICAL PATCH TD SCH (11:29)
[2022-05-24] MEDS: PRENATAL VITAMINS W/ FOLIC ACID TABLET (FP) PO SCH (11:32)
== END 2022-05-24 13:43 | disposition home or self-care (01) | DRG 773 ==
LOC: YASAS 12:23 → Y6N 16:41
PROVIDERS: ADMIT Allergy & Immunology; ATTEND Surgery
PROC: HZ2ZZZZ Detoxification Services for Substance Abuse Treatment (ICD-10-PCS; principal; 2022-05-19)
DX: F11.23 Opioid dependence with withdrawal (principal); F10.230 Alcohol dependence with withdrawal, uncomplicated; F13.230 Sedative, hypnotic or anxiolytic dependence with withdrawal, uncomplicated; F14.20 Cocaine dependence, uncomplicated; F17.210 Nicotine dependence, cigarettes, uncomplicated; F19.280 Other psychoactive substance dependence with psychoactive substance-induced anxiety disorder; F19.282 Other psychoactive substance dependence with psychoactive substance-induced sleep disorder; F41.9 Anxiety disorder, unspecified; F32.A Depression, unspecified; D64.9 Anemia, unspecified; U07.1 COVID-19; N39.0 Urinary tract infection, site not specified; L85.3 Xerosis cutis; L03.114 Cellulitis of left upper limb; L03.115 Cellulitis of right lower limb; M54.50 Low back pain, unspecified; G89.29 Other chronic pain; Z86.73 Personal history of transient ischemic attack (TIA), and cerebral infarction without residual deficits; Z88.8 Allergy status to other drugs, medicaments and biological substances; R63.4 Abnormal weight loss; Z68.23 Body mass index [BMI] 23.0-23.9, adult; Z86.718 Personal history of other venous thrombosis and embolism
CPT/HCPCS: 36415; 80053; 81003; 81025; 82140; 85027; 86780; C9803-CS; U0003; U0005

== ENCOUNTER 2022-06-26 11:40 | Inpatient (IN) | payer OTHER ==
[2022-06-26 12:08] VITALS: BMI 22.8
[2022-06-26] MEDS ORDERED: IBUPROFEN 600 MG TABLET (FP) PO PRN (13:21)
[2022-06-26] MEDS ORDERED: ONDANSETRON *ODT* 4 MG TABLET SL PRN (13:21)
[2022-06-26] MEDS ORDERED: NICOTINE 10 MG CARTRIDGE (INHALER) IH PRN (13:21)
[2022-06-26] MEDS ORDERED: BISMUTH SUBSALICYLATE 524 MG/30 ML PO PRN (13:21)
[2022-06-26] MEDS ORDERED: ACETAMINOPHEN 325 MG TABLET (FP) PO PRN ×2 (13:21)
[2022-06-26] MEDS ORDERED: NALOXONE HCL (KLOXXADO) 8 MG SPRAY NS PRN (13:21)
[2022-06-26] MEDS ORDERED: MAGNESIUM HYDROX 2400MG/30ML ORAL SUSPENSION 30 ML CUP PO PRN (13:21)
[2022-06-26] MEDS ORDERED: POLYETHYLENE GLYCOL (HEALTHYLAX) 3350 17 GM PACKET PO PRN (13:21)
[2022-06-26] MEDS ORDERED: BENZOCAINE/MENTHOL (CHLORASEPTIC ) LOZENGE MM PRN (13:21)
[2022-06-26] MEDS ORDERED: IBUPROFEN 400 MG TABLET (FP) PO PRN (13:21)
[2022-06-26] MEDS ORDERED: LOPERAMIDE HCL 2 MG CAPSULE PO PRN (13:21)
[2022-06-26] MEDS ORDERED: NICOTINE 7 MG/24 HOURS TOPICAL PATCH TD PRN (13:21)
[2022-06-26] MEDS ORDERED: DICYCLOMINE HCL 10 MG CAPSULE PO PRN (13:21)
[2022-06-26] MEDS ORDERED: MAG HYDROX/AL HYDROX/SIMETH 30 ML UNIT-DOSE CUP PO PRN (13:21)
[2022-06-26] MEDS ORDERED: diazePAM 5 MG TABLET PO PRN (13:21)
[2022-06-26] MEDS ORDERED: NICOTINE POLACRILEX 2 MG GUM BUC PRN (13:21)
[2022-06-26] MEDS ORDERED: methaDONE HCL 10 MG TABLET (FOR DETOX USE ONLY) PO ONE (14:45)
[2022-06-26] MEDS: diazePAM 5 MG TABLET PO SCH ×2 (18:04→22:18)
[2022-06-26] MEDS: THIAMINE HCL 100 MG TABLET (FP) PO SCH (22:18)
[2022-06-26] MEDS: MELATONIN 5 MG TABLETS PO SCH (22:18)
[2022-06-27] MEDS: diazePAM 5 MG TABLET PO SCH ×4 (05:36→22:04)
[2022-06-27] MEDS: PRENATAL VITAMINS W/ FOLIC ACID TABLET (FP) PO SCH (10:12)
[2022-06-27] MEDS: diazePAM 5 MG TABLET PO PRN ×3 (10:13→19:43)
[2022-06-27] MEDS: THIAMINE HCL 100 MG TABLET (FP) PO SCH (22:04)
[2022-06-27] MEDS: MELATONIN 5 MG TABLETS PO SCH (22:04)
[2022-06-28] MEDS: diazePAM 5 MG TABLET PO PRN ×2 (02:14→10:04)
[2022-06-28] MEDS ORDERED: diazePAM 5 MG TABLET PO SCH (06:00)
[2022-06-28] MEDS: diazePAM 5 MG TABLET PO SCH ×3 (06:39→22:37)
[2022-06-28] MEDS ORDERED: methaDONE HCL 10 MG TABLET (FOR DETOX USE ONLY) PO ONE (10:00)
[2022-06-28] MEDS: PRENATAL VITAMINS W/ FOLIC ACID TABLET (FP) PO SCH (10:03)
[2022-06-28] MEDS: ESCITALOPRAM OXALATE 20 MG TABLET PO SCH (12:27)
[2022-06-28] MEDS: METHOCARBAMOL 500 MG TABLET PO PRN (13:50)
[2022-06-28] MEDS: QUEtiapine FUMARATE 50 MG TABLET PO SCH (22:37)
[2022-06-28] MEDS: MELATONIN 5 MG TABLETS PO SCH (22:37)
[2022-06-28] MEDS: THIAMINE HCL 100 MG TABLET (FP) PO SCH (22:37)
[2022-06-29] MEDS: diazePAM 5 MG TABLET PO SCH ×2 (05:35→17:17)
[2022-06-29] MEDS: PRENATAL VITAMINS W/ FOLIC ACID TABLET (FP) PO SCH (10:37)
[2022-06-29] MEDS: ESCITALOPRAM OXALATE 20 MG TABLET PO SCH (10:37)
[2022-06-29] MEDS ORDERED: diazePAM 5 MG TABLET PO PRN (10:42)
[2022-06-29] MEDS: METHOCARBAMOL 500 MG TABLET PO PRN ×2 (17:17→22:18)
[2022-06-29] MEDS: THIAMINE HCL 100 MG TABLET (FP) PO SCH (22:17)
[2022-06-29] MEDS: MELATONIN 5 MG TABLETS PO SCH (22:17)
[2022-06-29] MEDS: QUEtiapine FUMARATE 50 MG TABLET PO SCH (22:18)
[2022-06-30] MEDS ORDERED: diazePAM 5 MG TABLET PO ONE (06:00)
[2022-06-30] MEDS ORDERED: methaDONE HCL 10 MG TABLET (FOR DETOX USE ONLY) PO ONE (10:00)
[2022-06-30] MEDS: METHOCARBAMOL 500 MG TABLET PO PRN ×2 (10:29→22:10)
[2022-06-30] MEDS: ESCITALOPRAM OXALATE 20 MG TABLET PO SCH (10:29)
[2022-06-30] MEDS: PRENATAL VITAMINS W/ FOLIC ACID TABLET (FP) PO SCH (10:30)
[2022-06-30] MEDS: QUEtiapine FUMARATE 50 MG TABLET PO SCH (22:10)
[2022-06-30] MEDS: THIAMINE HCL 100 MG TABLET (FP) PO SCH (22:10)
[2022-06-30] MEDS: MELATONIN 5 MG TABLETS PO SCH (22:36)
[2022-07-01] MEDS: PRENATAL VITAMINS W/ FOLIC ACID TABLET (FP) PO SCH (10:17)
[2022-07-01] MEDS: ESCITALOPRAM OXALATE 20 MG TABLET PO SCH (10:17)
[2022-07-01 12:42] VITALS: BP 119/64; PULSE 97; RESP 18; TEMP 97.3
== END 2022-07-01 12:50 | disposition home or self-care (01) | DRG 773 ==
LOC: YASAS 11:40 → Y6N 13:29
PROVIDERS: ADMIT Allergy & Immunology; ATTEND Surgery
PROC: HZ2ZZZZ Detoxification Services for Substance Abuse Treatment (ICD-10-PCS; principal; 2022-06-26)
DX: F11.23 Opioid dependence with withdrawal (principal); F10.230 Alcohol dependence with withdrawal, uncomplicated; F14.20 Cocaine dependence, uncomplicated; F12.20 Cannabis dependence, uncomplicated; F17.210 Nicotine dependence, cigarettes, uncomplicated; F32.A Depression, unspecified; G47.00 Insomnia, unspecified; R63.4 Abnormal weight loss; Z68.22 Body mass index [BMI] 22.0-22.9, adult; Z86.73 Personal history of transient ischemic attack (TIA), and cerebral infarction without residual deficits; Z86.79 Personal history of other diseases of the circulatory system; Z88.8 Allergy status to other drugs, medicaments and biological substances
CPT/HCPCS: 71046-TC-FY; 87811; C9803-CS; U0003; U0005

== ENCOUNTER 2022-08-18 14:37 | Inpatient (IN) | payer OTHER ==
[2022-08-18 15:30] VITALS: BMI 21.7
[2022-08-18] MEDS ORDERED: NALOXONE HCL 0.4 MG/ML VIAL IM PRN (16:15)
[2022-08-18] MEDS ORDERED: LOPERAMIDE HCL 2 MG CAPSULE PO PRN (16:15)
[2022-08-18] MEDS ORDERED: P-EPHED 60MG/TRIPROLIDI 2.5MG TABLET PO PRN (16:15)
[2022-08-18] MEDS ORDERED: NALOXONE HCL (KLOXXADO) 8 MG SPRAY NS PRN (16:15)
[2022-08-18] MEDS ORDERED: BENZONATATE 200 MG CAPSULE PO PRN (16:15)
[2022-08-18] MEDS ORDERED: BENZOCAINE/MENTHOL (CHLORASEPTIC ) LOZENGE MM PRN (16:15)
[2022-08-18] MEDS ORDERED: DICYCLOMINE HCL 10 MG CAPSULE PO PRN (16:15)
[2022-08-18] MEDS ORDERED: NICOTINE 7 MG/24 HOURS TOPICAL PATCH TD PRN (16:15)
[2022-08-18] MEDS ORDERED: MAGNESIUM HYDROX 2400MG/30ML ORAL SUSPENSION 30 ML CUP PO PRN (16:15)
[2022-08-18] MEDS ORDERED: MAG HYDROX/AL HYDROX/SIMETH 30 ML UNIT-DOSE CUP PO PRN (16:15)
[2022-08-18] MEDS ORDERED: BISMUTH SUBSALICYLATE 524 MG/30 ML PO PRN (16:15)
[2022-08-18] MEDS ORDERED: ACETAMINOPHEN 325 MG TABLET (FP) PO PRN (16:15)
[2022-08-18] MEDS ORDERED: IBUPROFEN 400 MG TABLET (FP) PO PRN (16:15)
[2022-08-18] MEDS ORDERED: POLYETHYLENE GLYCOL (HEALTHYLAX) 3350 17 GM PACKET PO PRN (16:15)
[2022-08-18] MEDS ORDERED: guaiFENesin 600 MG TABLET.ER (FP) PO PRN (16:15)
[2022-08-18] MEDS ORDERED: NICOTINE 10 MG CARTRIDGE (INHALER) IH PRN (16:15)
[2022-08-18] MEDS ORDERED: IBUPROFEN 600 MG TABLET (FP) PO PRN (16:15)
[2022-08-18] MEDS ORDERED: ONDANSETRON *ODT* 4 MG TABLET SL PRN (16:15)
[2022-08-18] MEDS: SULFAMETHOXAZOLE/TRIMETHOPRIM 800MG/160MG D.S. TABLET PO SCH ×2 (17:41→22:42)
[2022-08-18] MEDS: hydrOXYzine PAMOATE 25 MG CAPSULE (FP) PO PRN (18:22)
[2022-08-18] MEDS: MELATONIN 5 MG TABLETS PO PRN (22:42)
[2022-08-18] MEDS: THIAMINE HCL 100 MG TABLET (FP) PO SCH (22:42)
[2022-08-19] MEDS ORDERED: cloNIDine HCL 0.1 MG TABLET PO PRN (09:46)
[2022-08-19] MEDS ORDERED: methaDONE HCL 10 MG TABLET (FOR DETOX USE ONLY) PO ONE (09:46)
[2022-08-19] MEDS: METHOCARBAMOL 500 MG TABLET PO PRN ×2 (10:28→22:25)
[2022-08-19] MEDS: PRENATAL VITAMINS W/ FOLIC ACID TABLET (FP) PO SCH (10:28)
[2022-08-19] MEDS: hydrOXYzine PAMOATE 25 MG CAPSULE (FP) PO PRN ×2 (10:28→22:25)
[2022-08-19] MEDS: ESCITALOPRAM OXALATE 20 MG TABLET PO SCH (10:28)
[2022-08-19] MEDS: SULFAMETHOXAZOLE/TRIMETHOPRIM 800MG/160MG D.S. TABLET PO SCH ×4 (10:28→22:25)
[2022-08-19] MEDS ORDERED: NICOTINE POLACRILEX 2 MG GUM BUC PRN (11:10)
[2022-08-19 12:23] LABS: HEMATOCRIT 31.4 % (32.4-45.2); HEMOGLOBIN 10.8 GM/dL (10.7-15.3); MCH 27.2 pg (25.7-33.7); MCHC 34.3 g/dl (32.0-36.0); MEAN CELL VOLUME 79.3 fl (80-96); MEAN PLT VOLUME 12.6 fl (7.5-11.1); PLATELET COUNT 84 10^3/uL (134-434); RBC 3.96 M/mm3 (3.60-5.2); RDW 17.1 % (11.6-15.6); WHITE BLOOD COUNT 3.2 K/mm3 (4.0-10.0)
[2022-08-19 12:32] LABS: CALCIUM 9.6 mg/dL (8.5-10.1)
[2022-08-19 12:33] LABS: ALBUMIN 2.9 g/dl (3.4-5.0); BLOOD UREA NITROGEN 12.2 mg/dL (7-18)
[2022-08-19 12:35] LABS: CREATININE 0.6 mg/dL (0.55-1.3)
[2022-08-19 12:37] LABS: BILIRUBIN,TOTAL 0.3 mg/dL (0.2-1); TOT PROT 6.2 g/dl (6.4-8.2)
[2022-08-19] MEDS: MELATONIN 5 MG TABLETS PO PRN (22:25)
[2022-08-19] MEDS: THIAMINE HCL 100 MG TABLET (FP) PO SCH (22:25)
[2022-08-20] MEDS: hydrOXYzine PAMOATE 25 MG CAPSULE (FP) PO PRN ×2 (08:36→18:19)
[2022-08-20] MEDS: PRENATAL VITAMINS W/ FOLIC ACID TABLET (FP) PO SCH (10:31)
[2022-08-20] MEDS: ESCITALOPRAM OXALATE 20 MG TABLET PO SCH (10:33)
[2022-08-20] MEDS: SULFAMETHOXAZOLE/TRIMETHOPRIM 800MG/160MG D.S. TABLET PO SCH ×4 (10:33→22:04)
[2022-08-20] MEDS: METHOCARBAMOL 500 MG TABLET PO PRN (18:18)
[2022-08-20] MEDS: THIAMINE HCL 100 MG TABLET (FP) PO SCH (22:04)
[2022-08-20] MEDS: QUEtiapine FUMARATE 50 MG TABLET PO PRN (22:04)
[2022-08-21] MEDS: ESCITALOPRAM OXALATE 20 MG TABLET PO SCH (09:43)
[2022-08-21] MEDS: PRENATAL VITAMINS W/ FOLIC ACID TABLET (FP) PO SCH (09:43)
[2022-08-21] MEDS: SULFAMETHOXAZOLE/TRIMETHOPRIM 800MG/160MG D.S. TABLET PO SCH ×4 (09:43→22:40)
[2022-08-21] MEDS ORDERED: methaDONE HCL 10 MG TABLET (FOR DETOX USE ONLY) PO ONE (10:00)
[2022-08-21] MEDS: THIAMINE HCL 100 MG TABLET (FP) PO SCH (22:39)
[2022-08-21] MEDS: QUEtiapine FUMARATE 50 MG TABLET PO PRN (22:39)
[2022-08-22] MEDS: ESCITALOPRAM OXALATE 20 MG TABLET PO SCH (10:46)
[2022-08-22] MEDS: PRENATAL VITAMINS W/ FOLIC ACID TABLET (FP) PO SCH (10:46)
[2022-08-22] MEDS: SULFAMETHOXAZOLE/TRIMETHOPRIM 800MG/160MG D.S. TABLET PO SCH ×4 (10:47→22:24)
[2022-08-22] MEDS: hydrOXYzine PAMOATE 25 MG CAPSULE (FP) PO PRN (11:35)
[2022-08-22] MEDS: diazePAM 5 MG TABLET PO SCH (12:07)
[2022-08-22] MEDS: METHOCARBAMOL 500 MG TABLET PO PRN (17:17)
[2022-08-22 17:46] VITALS: RESP 18
[2022-08-22] MEDS: THIAMINE HCL 100 MG TABLET (FP) PO SCH (22:24)
[2022-08-22] MEDS: QUEtiapine FUMARATE 50 MG TABLET PO PRN (22:24)
[2022-08-23] MEDS ORDERED: methaDONE HCL 10 MG TABLET (FOR DETOX USE ONLY) PO ONE (10:00)
[2022-08-23] MEDS: SULFAMETHOXAZOLE/TRIMETHOPRIM 800MG/160MG D.S. TABLET PO SCH ×4 (10:13→22:00)
[2022-08-23] MEDS: PRENATAL VITAMINS W/ FOLIC ACID TABLET (FP) PO SCH (10:13)
[2022-08-23] MEDS: ESCITALOPRAM OXALATE 20 MG TABLET PO SCH (10:13)
[2022-08-23] MEDS: diazePAM 5 MG TABLET PO SCH (10:14)
[2022-08-23] MEDS: METHOCARBAMOL 500 MG TABLET PO PRN (14:23)
[2022-08-23] MEDS: hydrOXYzine PAMOATE 25 MG CAPSULE (FP) PO PRN ×2 (14:23→17:46)
[2022-08-23] MEDS: THIAMINE HCL 100 MG TABLET (FP) PO SCH (22:00)
[2022-08-23] MEDS: QUEtiapine FUMARATE 50 MG TABLET PO PRN (22:00)
[2022-08-24 07:17] VITALS: BP 104/64; PULSE 70; TEMP 98.3
[2022-08-24] MEDS: ESCITALOPRAM OXALATE 20 MG TABLET PO SCH (09:33)
[2022-08-24] MEDS: PRENATAL VITAMINS W/ FOLIC ACID TABLET (FP) PO SCH (09:33)
[2022-08-24] MEDS: diazePAM 5 MG TABLET PO SCH (09:33)
[2022-08-24] MEDS: SULFAMETHOXAZOLE/TRIMETHOPRIM 800MG/160MG D.S. TABLET PO SCH (09:34)
== END 2022-08-24 10:11 | disposition home or self-care (01) | DRG 773 ==
LOC: YASAS 14:37 → Y6N 16:58
PROVIDERS: ADMIT Allergy & Immunology; ATTEND Surgery
PROC: HZ2ZZZZ Detoxification Services for Substance Abuse Treatment (ICD-10-PCS; principal; 2022-08-18)
DX: F11.23 Opioid dependence with withdrawal (principal); F10.230 Alcohol dependence with withdrawal, uncomplicated; F14.20 Cocaine dependence, uncomplicated; F17.210 Nicotine dependence, cigarettes, uncomplicated; F19.282 Other psychoactive substance dependence with psychoactive substance-induced sleep disorder; F19.280 Other psychoactive substance dependence with psychoactive substance-induced anxiety disorder; F32.A Depression, unspecified; L03.115 Cellulitis of right lower limb; M41.9 Scoliosis, unspecified; M79.89 Other specified soft tissue disorders; D50.9 Iron deficiency anemia, unspecified; R63.4 Abnormal weight loss; Z68.21 Body mass index [BMI] 21.0-21.9, adult; Z62.810 Personal history of physical and sexual abuse in childhood; Z86.19 Personal history of other infectious and parasitic diseases; Z91.410 Personal history of adult physical and sexual abuse; Z88.8 Allergy status to other drugs, medicaments and biological substances
CPT/HCPCS: 36415; 80053; 81025; 85027; 86780; 87811; C9803-CS; Q0162; U0003; U0005